=== PATIENT | female | born 1960 | race Caucasian/White ===

== ENCOUNTER 2020-05-24 04:56 | Inpatient (IN) | payer SELFPAY ==
[~2020-05-24] VITALS: Ht 152.4 cm; Wt 64.1 kg
[2020-05-24] MEDS ORDERED: MORPHINE SULFATE 4 MG/ML CPJ (NOT FOR IM USE) IV STA (07:48)
[2020-05-24 08:13] LABS: BASOPHILS % 0.5 % (0.0-2.0); EOSINOPHILS % 2.9 % (0.0-5.0); HEMATOCRIT. 27.5 % (36.0-48.0); LYMPHOCYTES % 27.4 % (20.0-50.0); MEAN CORPUSCULAR VOLUME 86.1 fL (81.0-99.0); MEAN PLATELET VOLUME 6.9 fl (7.4-10.4); MONOCYTES % 4.6 % (2.0-8.0); NEUTROPHILS % 64.6 % (40.0-76.0); PLATELET 226 x1000/uL (130-400); RED BLOOD CELL COUNT 3.19 mill/uL (4.2-5.4); RED CELL DISTRIBUTION WIDTH 13.9 % (11.6-14.6)
[2020-05-24 08:47] LABS: MEAN CORPUSCULAR HEMOGLOBIN 31.3 pg (28.0-32.0)
[2020-05-24 09:47] LABS: CHLORIDE 79 mEq/L (98-107)
[2020-05-24] MEDS ORDERED: MORPHINE SULFATE 4 MG/ML CPJ (NOT FOR IM USE) IV SCH (09:47)
[2020-05-24] MEDS ORDERED: SODIUM CHLORIDE 0.9% 1,000 ML IV ONE (10:00)
[2020-05-24] MEDS ORDERED: POTASSIUM CHLORIDE 20MEQ TABLET SR PO ONE (10:00)
[2020-05-24] MEDS ORDERED: ONDANSETRON HCL 4MG/2ML INJ IV ONE (10:45)
[2020-05-24] MEDS ORDERED: ONDANSETRON HCL 4MG/2ML INJ IV PRN (11:45)
[2020-05-24] MEDS ORDERED: ATROPINE SULFATE 1MG/10ML SYR IV ONE (12:00)
[2020-05-24] MEDS ORDERED: POTASSIUM CHLORIDE 20MEQ TABLET SR PO NR (13:00)
[2020-05-24] MEDS: ENOXAPARIN 40MG/0.4ML SYR SUBCUT SCH (14:06)
[2020-05-24] MEDS: AMLODIPINE 10MG TABLET PO SCH (14:37)
[2020-05-24] MEDS: SODIUM CHLORIDE 0.9% 1,000 ML IV SCH ×2 (14:40→23:59)
[2020-05-24] MEDS: LOSARTAN POTASSIUM 100 MG TABLET PO SCH (16:27)
[2020-05-24] MEDS: FENOFIBRATE NANOCRYSTALLIZED 145MG TABLET PO SCH (16:27)
[2020-05-24 20:00] VITALS: BP_SYST 134; BP_SYST 155; BP_DIAS 65; BP_DIAS 77
[2020-05-24] MEDS: ATORVASTATIN CALCIUM 40MG TABLET PO SCH (22:08)
[2020-05-24] MEDS: POTASSIUM CHLORIDE 20MEQ TABLET SR PO SCH (23:56)
[2020-05-24] MEDS: ACETAMINOPHEN 325MG TABLET PO PRN (23:59)
[2020-05-25] VITALS: BP 126/50
[2020-05-25 04:00] VITALS: BP 143/66
[2020-05-25 07:31] LABS: CHLORIDE 84 mEq/L (98-107)
[2020-05-25] MEDS: ACETAMINOPHEN 325MG TABLET PO PRN (07:32)
[2020-05-25 08:00] VITALS: BP 110/59
[2020-05-25] MEDS: ASPIRIN 81MG TABLET PO SCH (09:34)
[2020-05-25] MEDS: POTASSIUM CHLORIDE 20MEQ TABLET SR PO SCH (09:34)
[2020-05-25] MEDS: AMLODIPINE 10MG TABLET PO SCH (09:34)
[2020-05-25] MEDS: LOSARTAN POTASSIUM 100 MG TABLET PO SCH (09:34)
[2020-05-25] MEDS: FENOFIBRATE NANOCRYSTALLIZED 145MG TABLET PO SCH (09:34)
[2020-05-25 12:00] VITALS: BP 124/47
[2020-05-25] MEDS ORDERED: INFLUENZA VACCINE 05/PF 0.5 ML VIAL IM ONE (12:00)
[2020-05-25 12:15] LABS: BASOPHILS % 0.7 % (0.0-2.0); EOSINOPHILS % 2.5 % (0.0-5.0); HEMATOCRIT. 27.3 % (36.0-48.0); HEMOGLOBIN. 10.2 g/dL (12.0-16.0); LYMPHOCYTES % 30.8 % (20.0-50.0); MEAN CORPUSCULAR HEMOGLOBIN 32.7 pg (28.0-32.0); MEAN CORPUSCULAR VOLUME 87.8 fL (81.0-99.0); MONOCYTES % 3.6 % (2.0-8.0); NEUTROPHILS % 62.4 % (40.0-76.0); PLATELET 229 x1000/uL (130-400); RED BLOOD CELL COUNT 3.11 mill/uL (4.2-5.4); RED CELL DISTRIBUTION WIDTH 13.7 % (11.6-14.6)
[2020-05-25] MEDS: ENOXAPARIN 40MG/0.4ML SYR SUBCUT SCH (13:21)
[2020-05-25] MEDS: SODIUM CHLORIDE 0.9% 1,000 ML IV SCH ×2 (13:21→21:06)
[2020-05-25] MEDS ORDERED: MORPHINE SULFATE 2 MG/ML CPJ (NOT FOR IM USE) IV PRN (13:30)
[2020-05-25] MEDS ORDERED: TRAMADOL 50MG TABLET PO PRN (14:45)
[2020-05-25] MEDS ORDERED: METOCLOPRAMIDE HCL 10MG/2ML VIAL IV PRN (15:30)
[2020-05-25 16:00] VITALS: BP 125/63
[2020-05-25 20:00] VITALS: BP 127/51
[2020-05-25] MEDS: ATORVASTATIN CALCIUM 40MG TABLET PO SCH (21:05)
[2020-05-26] VITALS: BP 98/42
[2020-05-26] MEDS: SODIUM CHLORIDE 0.9% 1,000 ML IV SCH ×2 (02:16→08:35)
[2020-05-26 04:00] VITALS: BP 102/44
[2020-05-26 06:42] LABS: CHLORIDE 87 mEq/L (98-107)
[2020-05-26 06:51] LABS: CLARITY URINE CLEAR (CLEAR); COLOR URINE YELLOW (YELLOW); KETONES URINE NEGATIVE (NEGATIVE); LEUKOCYTE ESTERASE URINE NEGATIVE (NEGATIVE); NITRITE URINE NEGATIVE (NEGATIVE); OCCULT BLOOD URINE NEGATIVE (NEGATIVE); PROTEIN URINE TRACE (NEGATIVE); SPECIFIC GRAVITY URINE 1.011 (1.005-1.030); UROBILINOGEN URINE 0.2 E.U./dL (0.2-1.0)
[2020-05-26 08:00] VITALS: BP 138/61
[2020-05-26] MEDS: ASPIRIN 81MG TABLET PO SCH (08:24)
[2020-05-26] MEDS: FENOFIBRATE NANOCRYSTALLIZED 145MG TABLET PO SCH (08:24)
[2020-05-26] MEDS: AMLODIPINE 10MG TABLET PO SCH (08:25)
[2020-05-26 08:51] LABS: BASOPHILS % 0.7 % (0.0-2.0); EOSINOPHILS % 2.1 % (0.0-5.0); HEMATOCRIT. 24.7 % (36.0-48.0); HEMOGLOBIN. 8.9 g/dL (12.0-16.0); LYMPHOCYTES % 30.6 % (20.0-50.0); MEAN CORPUSCULAR VOLUME 88.7 fL (81.0-99.0); MEAN PLATELET VOLUME 6.9 fl (7.4-10.4); MONOCYTES % 5.2 % (2.0-8.0); NEUTROPHILS % 61.4 % (40.0-76.0); PLATELET 187 x1000/uL (130-400); RED BLOOD CELL COUNT 2.78 mill/uL (4.2-5.4)
[2020-05-26] MEDS: ENOXAPARIN 40MG/0.4ML SYR SUBCUT SCH (11:18)
[2020-05-26 12:00] VITALS: BP 117/63
[2020-05-26 16:00] VITALS: BP 129/65
[2020-05-26 20:00] VITALS: BP 127/60
[2020-05-26] MEDS: ATORVASTATIN CALCIUM 40MG TABLET PO SCH (20:36)
[2020-05-27] VITALS: BP 122/59
[2020-05-27 04:00] VITALS: BP 129/56
[2020-05-27 07:40] LABS: BASOPHILS % 0.9 % (0.0-2.0); EOSINOPHILS % 2.7 % (0.0-5.0); HEMATOCRIT. 25.4 % (36.0-48.0); HEMOGLOBIN. 9.3 g/dL (12.0-16.0); LYMPHOCYTES % 34.2 % (20.0-50.0); MEAN CORPUSCULAR HEMOGLOBIN 32.7 pg (28.0-32.0); MEAN CORPUSCULAR VOLUME 89.6 fL (81.0-99.0); MONOCYTES % 4.8 % (2.0-8.0); NEUTROPHILS % 57.4 % (40.0-76.0); PLATELET 215 x1000/uL (130-400); RED BLOOD CELL COUNT 2.84 mill/uL (4.2-5.4); RED CELL DISTRIBUTION WIDTH 14.1 % (11.6-14.6)
[2020-05-27 07:55] LABS: CHLORIDE 89 mEq/L (98-107)
[2020-05-27 08:00] VITALS: BP 122/51
[2020-05-27] MEDS: ASPIRIN 81MG TABLET PO SCH (08:50)
[2020-05-27] MEDS: FENOFIBRATE NANOCRYSTALLIZED 145MG TABLET PO SCH (08:50)
[2020-05-27] MEDS: AMLODIPINE 10MG TABLET PO SCH (08:51)
[2020-05-27] MEDS: ENOXAPARIN 40MG/0.4ML SYR SUBCUT SCH (11:40)
[2020-05-27 12:00] VITALS: BP 130/57
[2020-05-27] MEDS ORDERED: LACTULOSE 20G/30ML UDC PO NR (14:45)
[2020-05-27] MEDS ORDERED: BENZONATATE 100MG CAPSULE PO PRN (14:45)
[2020-05-27 16:00] VITALS: BP 108/57
[2020-05-27] MEDS: DOCUSATE SODIUM 100MG CAPSULE PO SCH (16:23)
[2020-05-27 20:00] VITALS: BP 92/45
[2020-05-27] MEDS: ATORVASTATIN CALCIUM 40MG TABLET PO SCH (20:12)
[2020-05-28] VITALS: BP 100/49
[2020-05-28 04:00] VITALS: BP 121/47
[2020-05-28 05:53] LABS: CHLORIDE 86 mEq/L (98-107)
[2020-05-28 08:00] VITALS: BP 135/53
[2020-05-28] MEDS: DOCUSATE SODIUM 100MG CAPSULE PO SCH ×2 (08:33→16:43)
[2020-05-28] MEDS: ASPIRIN 81MG TABLET PO SCH (08:33)
[2020-05-28 08:50] LABS: EOSINOPHILS % 3.3 % (0.0-5.0); HEMATOCRIT. 26.9 % (36.0-48.0); HEMOGLOBIN. 9.8 g/dL (12.0-16.0); LYMPHOCYTES % 39.3 % (20.0-50.0); MEAN CORPUSCULAR HEMOGLOBIN 32.6 pg (28.0-32.0); MEAN CORPUSCULAR VOLUME 89.8 fL (81.0-99.0); MEAN PLATELET VOLUME 6.8 fl (7.4-10.4); MONOCYTES % 6.5 % (2.0-8.0); NEUTROPHILS % 49.9 % (40.0-76.0); PLATELET 243 x1000/uL (130-400)
[2020-05-28] MEDS: FENOFIBRATE NANOCRYSTALLIZED 145MG TABLET PO SCH (11:57)
[2020-05-28 12:00] VITALS: BP 126/46
[2020-05-28] MEDS: ENOXAPARIN 40MG/0.4ML SYR SUBCUT SCH (14:34)
[2020-05-28 15:42] VITALS: BP 154/49
[2020-05-28] MEDS: SODIUM CHLORIDE 0.9% 1,000 ML IV SCH (17:49)
[2020-05-28 20:00] VITALS: BP 121/47
[2020-05-28] MEDS: ATORVASTATIN CALCIUM 40MG TABLET PO SCH (21:52)
[2020-05-29] VITALS: BP 129/49
[2020-05-29 04:00] VITALS: BP 118/53
[2020-05-29] MEDS: SODIUM CHLORIDE 0.9% 1,000 ML IV SCH (06:19)
[2020-05-29 08:00] VITALS: BP 122/55
[2020-05-29 08:05] LABS: CHLORIDE 87 mEq/L (98-107)
[2020-05-29] MEDS: DOCUSATE SODIUM 100MG CAPSULE PO SCH ×2 (08:42→17:00)
[2020-05-29] MEDS: ASPIRIN 81MG TABLET PO SCH (08:42)
[2020-05-29] MEDS: FENOFIBRATE NANOCRYSTALLIZED 145MG TABLET PO SCH (08:43)
[2020-05-29 10:17] LABS: BASOPHILS % 0.1 % (0.0-2.0); EOSINOPHILS % 4.3 % (0.0-5.0); HEMOGLOBIN. 9.3 g/dL (12.0-16.0); LYMPHOCYTES % 50.9 % (20.0-50.0); MEAN CORPUSCULAR VOLUME 89.8 fL (81.0-99.0); MEAN PLATELET VOLUME 6.4 fl (7.4-10.4); MONOCYTES % 5.8 % (2.0-8.0); NEUTROPHILS % 38.9 % (40.0-76.0); PLATELET 247 x1000/uL (130-400); RED BLOOD CELL COUNT 2.89 mill/uL (4.2-5.4); RED CELL DISTRIBUTION WIDTH 13.9 % (11.6-14.6)
[2020-05-29 12:00] VITALS: BP 125/58
[2020-05-29] MEDS: ENOXAPARIN 40MG/0.4ML SYR SUBCUT SCH (12:00)
[2020-05-29] MEDS ORDERED: ASPI-1160 PO (13:19)
[2020-05-29] MEDS ORDERED: FENO145 PO (13:19)
[2020-05-29] MEDS ORDERED: DOCU-150 PO (13:19)
[2020-05-29] MEDS ORDERED: LIP40 PO (13:19)
[2020-05-29] MEDS ORDERED: LACTULOSE 20G/30ML UDC PO SCH (13:30)
[2020-05-29 16:00] VITALS: BP 119/55
== END 2020-05-29 17:00 | disposition home or self-care (01) | DRG 203 ==
LOC: ER 04:56 → 8WST 11:33 → EDBEDREQ 11:39 → ENRESERV 16:59
PROVIDERS: ADMIT Internal Medicine; ATTEND Internal Medicine
DX: R07.89 Other chest pain (principal); D64.9 Anemia, unspecified; E78.00 Pure hypercholesterolemia, unspecified; E78.5 Hyperlipidemia, unspecified; E86.9 Volume depletion, unspecified; E87.1 Hypo-osmolality and hyponatremia; E87.6 Hypokalemia; I11.9 Hypertensive heart disease without heart failure; E87.8 Other disorders of electrolyte and fluid balance, not elsewhere classified; K59.00 Constipation, unspecified; I95.9 Hypotension, unspecified; R00.1 Bradycardia, unspecified
CPT/HCPCS: 36415; 71045; 74018; 80048; 80053; 80061; 81003; 82570; 83735; 83880; 83930; 83935; 84300; 84443; 84484; 85025; 90686; 93005; 93306; 97162; 99285; J0461; J1650; J2270; J2405; J2765; J7030; A4315

== ENCOUNTER 2022-01-15 08:13 | Inpatient (IN) | payer MEDICAID, OTHER ==
[~2022-01-15] VITALS: Ht 152.4 cm; Wt 64.4 kg
[~2022-01-15 08:13] MED LIST: ASPI-1160 PO; DOCU-150 PO; FENO145 PO; LIP40 PO
[2022-01-15] MEDS ORDERED: ONDANSETRON 4MG ODT PO STA (08:52)
[2022-01-15] MEDS ORDERED: MAGNESIUM/ALUMINUM HYDROXIDE/SIMETHICONE 30ML UDC PO STA (08:52)
[2022-01-15] MEDS ORDERED: ACETAMINOPHEN 325MG TABLET PO STA (08:52)
[2022-01-15] MEDS ORDERED: VISCOUS LIDOCAINE 2% 15 ML UDC PO STA (08:52)
[2022-01-15 09:52] LABS: CLARITY URINE CLEAR (CLEAR); COLOR URINE YELLOW (YELLOW); KETONES URINE NEGATIVE (NEGATIVE); LEUKOCYTE ESTERASE URINE NEGATIVE (NEGATIVE); NITRITE URINE NEGATIVE (NEGATIVE); OCCULT BLOOD URINE NEGATIVE (NEGATIVE); PROTEIN URINE 3+ (NEGATIVE); SPECIFIC GRAVITY URINE 1.025 (1.005-1.030)
[2022-01-15 10:52] LABS: HEMATOCRIT. 25.1 % (36.0-48.0); HEMOGLOBIN. 9.3 g/dL (12.0-16.0); MEAN CORPUSCULAR HEMOGLOBIN 32.2 pg (28.0-32.0); MEAN CORPUSCULAR VOLUME 86.9 fL (81.0-99.0); MEAN PLATELET VOLUME 6.6 fl (7.4-10.4); PLATELET 224 x1000/uL (130-400); RED BLOOD CELL COUNT 2.89 mill/uL (4.2-5.4)
[2022-01-15 11:00] LABS: CHLORIDE 87 mEq/L (98-107)
[2022-01-15] MEDS ORDERED: SODIUM CHLORIDE 0.9% 500 ML IV ONE (11:15)
[2022-01-15 14:53] LABS: PLATELET ESTIMATE NORMAL
[2022-01-15] MEDS: SODIUM CHLORIDE 0.9% 1,000 ML IV SCH (15:45)
[2022-01-15] MEDS: AMLODIPINE 10MG TABLET PO SCH (18:15)
[2022-01-15 18:17] VITALS: BP 161/50
[2022-01-15 20:00] VITALS: BP 136/55
[2022-01-15] MEDS: ACETAMINOPHEN 325MG TABLET PO PRN (22:10)
[2022-01-15] MEDS ORDERED: HYDROCODONE/ACETAMINOPHEN 10/325MG TABLET PO PRN (23:15)
[2022-01-16] VITALS: BP 158/53
[2022-01-16 04:00] VITALS: BP 137/50
[2022-01-16 06:52] LABS: CHLORIDE 88 mEq/L (98-107)
[2022-01-16 07:18] LABS: BASOPHILS % 1.2 % (0.0-2.0); EOSINOPHILS % 3.5 % (0.0-5.0); HEMATOCRIT. 24.9 % (36.0-48.0); HEMOGLOBIN. 9.1 g/dL (12.0-16.0); LYMPHOCYTES % 39.7 % (20.0-50.0); MEAN CORPUSCULAR VOLUME 87.8 fL (81.0-99.0); MEAN PLATELET VOLUME 6.8 fl (7.4-10.4); NEUTROPHILS % 51.6 % (40.0-76.0); PLATELET 206 x1000/uL (130-400); RED BLOOD CELL COUNT 2.84 mill/uL (4.2-5.4); RED CELL DISTRIBUTION WIDTH 14.1 % (11.6-14.6)
[2022-01-16 08:00] VITALS: BP 151/62
[2022-01-16] MEDS: AMLODIPINE 10MG TABLET PO SCH (09:07)
[2022-01-16] MEDS: SODIUM CHLORIDE 0.9% 1,000 ML IV SCH ×2 (09:08→17:25)
[2022-01-16 12:00] VITALS: BP 144/50
[2022-01-16] MEDS ORDERED: LACTULOSE 20G/30ML UDC PO SCH (12:30)
[2022-01-16] MEDS ORDERED: NALOXONE HCL 0.4MG/ML VIAL IV PRN (12:30)
[2022-01-16] MEDS: DOCUSATE SODIUM 250MG CAPSULE PO SCH (14:35)
[2022-01-16 16:00] VITALS: BP 140/51
[2022-01-16 20:00] VITALS: BP 140/56
[2022-01-16] MEDS: ONDANSETRON HCL 4MG/2ML INJ IV PRN (21:53)
[2022-01-16 23:43] LABS: SODIUM URINE RANDOM 100 mEq/L
[2022-01-17] VITALS: BP 119/48
[2022-01-17 04:00] VITALS: BP 122/51
[2022-01-17] MEDS: SODIUM CHLORIDE 0.9% 1,000 ML IV SCH ×3 (04:40→21:10)
[2022-01-17 07:54] LABS: BASOPHILS % 0.8 % (0.0-2.0); EOSINOPHILS % 3.3 % (0.0-5.0); HEMATOCRIT. 24.8 % (36.0-48.0); HEMOGLOBIN. 8.9 g/dL (12.0-16.0); LYMPHOCYTES % 37.1 % (20.0-50.0); MEAN CORPUSCULAR HEMOGLOBIN 31.9 pg (28.0-32.0); MEAN PLATELET VOLUME 6.6 fl (7.4-10.4); NEUTROPHILS % 54.8 % (40.0-76.0); PLATELET 211 x1000/uL (130-400); RED BLOOD CELL COUNT 2.79 mill/uL (4.2-5.4); RED CELL DISTRIBUTION WIDTH 14.1 % (11.6-14.6)
[2022-01-17 08:00] VITALS: BP 134/59
[2022-01-17 08:02] LABS: CHLORIDE 89 mEq/L (98-107)
[2022-01-17 08:14] LABS: PHOSPHORUS 2.7 mg/dL (2.5-4.9)
[2022-01-17] MEDS: AMLODIPINE 10MG TABLET PO SCH (08:42)
[2022-01-17] MEDS: DOCUSATE SODIUM 250MG CAPSULE PO SCH (09:46)
[2022-01-17 12:00] VITALS: BP 144/60
[2022-01-17] MEDS ORDERED: LACTULOSE 20G/30ML UDC PO NR (13:15)
[2022-01-17] MEDS: ONDANSETRON HCL 4MG/2ML INJ IV PRN (14:53)
[2022-01-17] MEDS: ACETAMINOPHEN 325MG TABLET PO PRN ×2 (14:53→23:16)
[2022-01-17 16:00] VITALS: BP 124/47
[2022-01-17 20:00] VITALS: BP 152/63
[2022-01-17] MEDS ORDERED: BISACODYL 10MG SUPP PR NR (21:00)
[2022-01-17] MEDS ORDERED: COSYNTROPIN 0.25MG/ML VIAL IV NR (21:45)
[2022-01-17] MEDS ORDERED: SORBITOL 70% SOLN 30ML PO NR (23:00)
[2022-01-17] MEDS: DEXAMETHASONE 4MG TABLET PO SCH (23:08)
[2022-01-18 04:06] VITALS: BP 148/50
[2022-01-18 08:00] VITALS: BP 127/50
[2022-01-18] MEDS: SODIUM CHLORIDE 0.9% 1,000 ML IV SCH (08:34)
[2022-01-18] MEDS: AMLODIPINE 10MG TABLET PO SCH (08:38)
[2022-01-18] MEDS: DOCUSATE SODIUM 250MG CAPSULE PO SCH (08:38)
[2022-01-18] MEDS: DEXAMETHASONE 4MG TABLET PO SCH ×2 (08:38→20:24)
[2022-01-18 12:00] VITALS: BP 155/68
[2022-01-18 15:52] VITALS: BP 125/46
[2022-01-18 16:33] LABS: BASOPHILS % 0.2 % (0.0-2.0); EOSINOPHILS % 0.1 % (0.0-5.0); HEMATOCRIT. 25.6 % (36.0-48.0); HEMOGLOBIN. 9.1 g/dL (12.0-16.0); LYMPHOCYTES % 9.5 % (20.0-50.0); MEAN CORPUSCULAR HEMOGLOBIN 31.7 pg (28.0-32.0); MONOCYTES % 0.9 % (2.0-8.0); NEUTROPHILS % 89.3 % (40.0-76.0); PLATELET 246 x1000/uL (130-400); RED BLOOD CELL COUNT 2.88 mill/uL (4.2-5.4); RED CELL DISTRIBUTION WIDTH 14.2 % (11.6-14.6)
[2022-01-18 16:50] LABS: CHLORIDE 93 mEq/L (98-107)
[2022-01-18 16:59] LABS: PHOSPHORUS 2.1 mg/dL (2.5-4.9); T4 FREE 0.24 ng/dL (0.76-1.46)
[2022-01-18 19:52] VITALS: BP 122/47
[2022-01-18] MEDS: ACETAMINOPHEN 325MG TABLET PO PRN (23:33)
[2022-01-18 23:50] VITALS: BP 155/64
[2022-01-19 04:00] VITALS: BP 132/48
[2022-01-19 06:18] LABS: BASOPHILS % 0.1 % (0.0-2.0); EOSINOPHILS % 0.1 % (0.0-5.0); HEMATOCRIT. 25.6 % (36.0-48.0); HEMOGLOBIN. 9.2 g/dL (12.0-16.0); LYMPHOCYTES % 9.8 % (20.0-50.0); MEAN CORPUSCULAR HEMOGLOBIN 31.8 pg (28.0-32.0); MEAN CORPUSCULAR VOLUME 88.7 fL (81.0-99.0); MEAN PLATELET VOLUME 7.2 fl (7.4-10.4); MONOCYTES % 1.9 % (2.0-8.0); NEUTROPHILS % 88.1 % (40.0-76.0); PLATELET 265 x1000/uL (130-400); RED BLOOD CELL COUNT 2.89 mill/uL (4.2-5.4); RED CELL DISTRIBUTION WIDTH 14.3 % (11.6-14.6)
[2022-01-19 06:21] LABS: CHLORIDE 97 mEq/L (98-107)
[2022-01-19 06:30] LABS: PHOSPHORUS 1.6 mg/dL (2.5-4.9)
[2022-01-19 08:00] VITALS: BP 139/54
[2022-01-19] MEDS: DEXAMETHASONE 4MG TABLET PO SCH (08:31)
[2022-01-19] MEDS: AMLODIPINE 10MG TABLET PO SCH (08:32)
[2022-01-19] MEDS: DOCUSATE SODIUM 250MG CAPSULE PO SCH (08:32)
[2022-01-19 12:00] VITALS: BP 125/51
[2022-01-19] MEDS ORDERED: PRED5TAB MT (12:46)
[2022-01-19] MEDS ORDERED: SODIUM PHOS,M-BASIC-D-BASIC 20 MM in DEXT 5% WATER 243.3333 ML IV NR (14:00)
[2022-01-19 16:00] VITALS: BP 138/52
[2022-01-19 19:47] VITALS: BP 157/65
[2022-01-19 20:00] VITALS: BP 157/65
== END 2022-01-19 21:00 | disposition home or self-care (01) | DRG 424 ==
LOC: ER 08:13 → EDBEDREQ 12:23 → EDBEDREQTM 12:23 → CANRESERV 17:41 → ENRESERV 17:41 → 6WST 17:50
PROVIDERS: ADMIT Internal Medicine; ATTEND Internal Medicine
DX: E27.40 Unspecified adrenocortical insufficiency (principal); E87.1 Hypo-osmolality and hyponatremia; M25.511 Pain in right shoulder; I10 Essential (primary) hypertension; D64.9 Anemia, unspecified; E78.00 Pure hypercholesterolemia, unspecified; D72.825 Bandemia; R79.89 Other specified abnormal findings of blood chemistry; Z79.82 Long term (current) use of aspirin; Z79.899 Other long term (current) drug therapy; Z90.49 Acquired absence of other specified parts of digestive tract; Z82.49 Family history of ischemic heart disease and other diseases of the circulatory system; Z83.3 Family history of diabetes mellitus; Z80.42 Family history of malignant neoplasm of prostate
CPT/HCPCS: 36415; 71045; 73030; 76705; 80048; 80053; 81003; 82024; 82088; 82533; 83735; 83935; 84100; 84145; 84300; 84439; 84443; 85025; 93005; 99285; J0834; J2405; J3490; J7030; J7060; J8540; Q0162

== ENCOUNTER 2022-01-25 16:26 | Inpatient (IN) | payer OTHER ==
[~2022-01-25] VITALS: Ht 152.4 cm; Wt 65.3 kg
[~2022-01-25 16:26] MED LIST changes: +PRED5TAB MT
[2022-01-25 18:59] LABS: BASOPHILS % 0.8 % (0.0-2.0); EOSINOPHILS % 1.1 % (0.0-5.0); HEMATOCRIT. 31.2 % (36.0-48.0); HEMOGLOBIN. 11.1 g/dL (12.0-16.0); LYMPHOCYTES % 30.1 % (20.0-50.0); MEAN CORPUSCULAR HEMOGLOBIN 31.9 pg (28.0-32.0); MEAN CORPUSCULAR VOLUME 89.8 fL (81.0-99.0); MEAN PLATELET VOLUME 6.2 fl (7.4-10.4); MONOCYTES % 5.8 % (2.0-8.0); NEUTROPHILS % 62.2 % (40.0-76.0); PLATELET 330 x1000/uL (130-400); RED BLOOD CELL COUNT 3.47 mill/uL (4.2-5.4); RED CELL DISTRIBUTION WIDTH 14.6 % (11.6-14.6)
[2022-01-25 19:21] LABS: CHLORIDE 90 mEq/L (98-107)
[2022-01-25 19:36] LABS: INR 1.1; PROTHROMBIN TIME 11.9 sec (9.6-11.0)
[2022-01-25 20:42] LABS: CLARITY URINE CLEAR (CLEAR); COLOR URINE YELLOW (YELLOW); KETONES URINE NEGATIVE (NEGATIVE); LEUKOCYTE ESTERASE URINE NEGATIVE (NEGATIVE); NITRITE URINE NEGATIVE (NEGATIVE); OCCULT BLOOD URINE TRACE (NEGATIVE); PH URINE 7.5 (4.5-8.0); PROTEIN URINE 2+ (NEGATIVE); SPECIFIC GRAVITY URINE 1.007 (1.005-1.030); UROBILINOGEN URINE 0.2 E.U./dL (0.2-1.0)
[2022-01-25 20:43] LABS: BG BASE EXCESS -0.2 mmol/L (-2.0-2.0); BG CARBOXYHEMOGLOBIN 0.3 % (0.5-1.5); BG DEOXYHEMOGLOBIN 2.4 % (0.0-5.0); BG HCO3 ACT 22.4 mmol/L (22.0-26.0); BG METHEMOGLOBIN 0.3 % (0.0-1.5); BG OXYGEN SATURATION 97.6 % (92.0-98.5); BG PCO2 30.2 mmHg (35.0-45.0); BG PH 7.488 (7.350-7.450); BG PO2 104.7 mmHg (75.0-100.0); BG SAMPLE SITE LEFT BRACHIAL; BG TOTAL HEMOGLOBIN 12.1 g/dL (12.0-18.0); BG VENT MODE ROOM AIR
[2022-01-25] MEDS ORDERED: SODIUM CHLORIDE 0.9% 1,000 ML IV ONE (21:00)
[2022-01-25 21:33] LABS: ETHANOL BLOOD < 10 mg/dL
[2022-01-25] MEDS ORDERED: ASPIRIN 325MG EC TABLET PO NR (22:00)
[2022-01-25] MEDS ORDERED: ENOXAPARIN 80MG/0.8ML SYR SUBCUT SCH (23:00)
[2022-01-25] MEDS ORDERED: CLONIDINE 0.1MG TABLET PO PRN (23:30)
[2022-01-26] VITALS (7 sets, daily range): BP systolic 116–144; BP diastolic 56–93
[2022-01-26] MEDS ORDERED: ACETAMINOPHEN 325MG TABLET PO PRN (01:00)
[2022-01-26 07:51] LABS: BASOPHILS % 0.9 % (0.0-2.0); EOSINOPHILS % 2.4 % (0.0-5.0); HEMATOCRIT. 30.9 % (36.0-48.0); LYMPHOCYTES % 49.4 % (20.0-50.0); MEAN CORPUSCULAR VOLUME 89.7 fL (81.0-99.0); MEAN PLATELET VOLUME 6.3 fl (7.4-10.4); MONOCYTES % 5.7 % (2.0-8.0); NEUTROPHILS % 41.6 % (40.0-76.0); PLATELET 319 x1000/uL (130-400); RED BLOOD CELL COUNT 3.45 mill/uL (4.2-5.4); RED CELL DISTRIBUTION WIDTH 14.6 % (11.6-14.6)
[2022-01-26] MEDS: METOPROLOL TARTRATE 50MG TABLET PO SCH ×2 (09:16→20:11)
[2022-01-26] MEDS: AMLODIPINE 2.5MG TABLET PO SCH ×2 (09:16→20:12)
[2022-01-26] MEDS: ASPIRIN 81MG TABLET PO SCH (09:16)
[2022-01-26] MEDS: PREDNISONE 5MG TABLET PO SCH (09:17)
[2022-01-26] MEDS: APIXABAN 5 MG TABLET PO SCH ×2 (09:17→17:10)
[2022-01-26] MEDS: DOCUSATE SODIUM 100MG CAPSULE PO SCH ×2 (09:19→17:10)
[2022-01-26] MEDS ORDERED: PANTOPRAZOLE 40MG DR TABLET PO SCH (11:45)
[2022-01-26] MEDS ORDERED: ATORVASTATIN CALCIUM 40MG TABLET PO SCH (21:00)
[2022-01-27] VITALS: BP 100/61
[2022-01-27 04:00] VITALS: BP 109/67
[2022-01-27] MEDS ORDERED: OMEPRAZOLE 20MG CAPSULE EXTENDED RELEASE PO SCH (07:40)
[2022-01-27 08:00] VITALS: BP 123/60
[2022-01-27] MEDS: ASPIRIN 81MG TABLET PO SCH (09:32)
[2022-01-27] MEDS: PREDNISONE 5MG TABLET PO SCH (09:33)
[2022-01-27] MEDS: APIXABAN 5 MG TABLET PO SCH ×2 (09:33→16:14)
[2022-01-27] MEDS: AMLODIPINE 2.5MG TABLET PO SCH (09:33)
[2022-01-27] MEDS: METOPROLOL TARTRATE 50MG TABLET PO SCH (09:33)
[2022-01-27] MEDS: DOCUSATE SODIUM 100MG CAPSULE PO SCH ×2 (09:34→16:14)
[2022-01-27 12:00] VITALS: BP 121/63
[2022-01-27] MEDS ORDERED: LACTULOSE 20G/30ML UDC PO SCH (14:00)
[2022-01-27 16:00] VITALS: BP 125/62
[2022-01-27 17:42] VITALS: BP 125/72
== END 2022-01-27 18:00 | disposition home or self-care (01) | DRG 48 ==
LOC: ER 16:26 → 7WST 22:12 → ENRESERV 22:44
PROVIDERS: ADMIT Internal Medicine; ATTEND Internal Medicine
DX: G90.8 Other disorders of autonomic nervous system (principal); E87.8 Other disorders of electrolyte and fluid balance, not elsewhere classified; E27.40 Unspecified adrenocortical insufficiency; E87.1 Hypo-osmolality and hyponatremia; R10.9 Unspecified abdominal pain; I10 Essential (primary) hypertension; E78.5 Hyperlipidemia, unspecified; R77.8 Other specified abnormalities of plasma proteins; Z82.49 Family history of ischemic heart disease and other diseases of the circulatory system; Z83.3 Family history of diabetes mellitus; Z90.49 Acquired absence of other specified parts of digestive tract; Z79.899 Other long term (current) drug therapy
CPT/HCPCS: 36415; 36600; 71045; 74176; 80048; 80053; 80320; 81003; 82140; 82375; 82805; 82962; 83605; 84443; 84484; 85025; 85379; 93005; 93306; 99285; J1650; J7030; J7512; G0480

== ENCOUNTER 2022-06-12 09:30 | Inpatient (IN) | payer MEDICAID, OTHER ==
[~2022-06-12] VITALS: Ht 152.4 cm; Wt 56.8 kg
[2022-06-12] MEDS ORDERED: SODIUM CHLORIDE 0.9% 1000ML BAG (SEPSIS BOLUS) IV ONE (10:00)
[2022-06-12 11:01] LABS: BASOPHILS % 0.8 % (0.0-2.0); EOSINOPHILS % 0.1 % (0.0-5.0); HEMATOCRIT. 34.5 % (36.0-48.0); LYMPHOCYTES % 23.5 % (20.0-50.0); MEAN CORPUSCULAR HEMOGLOBIN 32.1 pg (28.0-32.0); MEAN CORPUSCULAR VOLUME 92.6 fL (81.0-99.0); MEAN PLATELET VOLUME 8.5 fl (7.4-10.4); NEUTROPHILS % 71.6 % (40.0-76.0); PLATELET 202 x1000/uL (130-400); RED BLOOD CELL COUNT 3.73 mill/uL (4.2-5.4); RED CELL DISTRIBUTION WIDTH 15.5 % (11.6-14.6)
[2022-06-12 11:03] LABS: INR 1.3; PROTHROMBIN TIME 13.6 sec (9.6-11.0)
[2022-06-12 11:04] LABS: CHLORIDE 97 mEq/L (98-107)
[2022-06-12] MEDS ORDERED: PIPERACILLIN/TAZOBACTAM 3.375GM/50ML PREMIX IV ONE (11:45)
[2022-06-12] MEDS ORDERED: VANCOMYCIN 1.25GM PMX (XELLIA) 250 ML IV SCH (11:45)
[2022-06-12] MEDS ORDERED: PIPERACILLIN/TAZ 3.375G PREMIX 50 ML IV NR (12:00)
[2022-06-12] MEDS ORDERED: HYDROCORTISONE SOD SUCCINATE 100 MG/2 ML VIAL IV ONE ×2 (12:15→13:45)
[2022-06-12] MEDS ORDERED: DEXT 5%/LACTATED RINGERS 1,000 ML IV ONE (12:30)
[2022-06-12] MEDS ORDERED: DEXAMETHASONE 10 MG/ML VIAL IV ONE (12:30)
[2022-06-12] MEDS ORDERED: NOREPINEPHRINE 8MG/250ML PMX 250 ML IV SCH (13:45)
[2022-06-12] MEDS ORDERED: SODIUM CHLORIDE 0.9% 1,000 ML IV ONE (13:45)
[2022-06-12] MEDS ORDERED: ONDANSETRON HCL 4MG/2ML INJ IV PRN (15:45)
[2022-06-12] MEDS ORDERED: ACETAMINOPHEN 325MG TABLET PO PRN (15:45)
[2022-06-12] MEDS: DEXT 5%/0.45% NACL 1000ML 1,000 ML IV SCH (16:44)
[2022-06-12] MEDS ORDERED: PIPERACILLIN/TAZOBACTAM 3.375 G in DEXTROSE 5% WATER 50 ML IV SCH (23:00)
[2022-06-13] MEDS: DEXT 5%/0.45% NACL 1000ML 1,000 ML IV SCH ×3 (02:36→21:45)
[2022-06-13 09:00] VITALS: BP_SYST 144; BP_DIAS 61; BP_DIAS 81
[2022-06-13 12:00] VITALS: BP 103/58
[2022-06-13 12:59] LABS: BASOPHILS % 0.2 % (0.0-2.0); EOSINOPHILS % 0.1 % (0.0-5.0); HEMATOCRIT. 26.5 % (36.0-48.0); HEMOGLOBIN. 9.3 g/dL (12.0-16.0); MEAN CORPUSCULAR HEMOGLOBIN 31.9 pg (28.0-32.0); MEAN CORPUSCULAR VOLUME 91.2 fL (81.0-99.0); MEAN PLATELET VOLUME 7.8 fl (7.4-10.4); MONOCYTES % 3.2 % (2.0-8.0); NEUTROPHILS % 88.5 % (40.0-76.0); PLATELET 163 x1000/uL (130-400); RED BLOOD CELL COUNT 2.91 mill/uL (4.2-5.4)
[2022-06-13 16:00] VITALS: BP 140/61
[2022-06-13] MEDS: PIPERACILLIN/TAZOBACTAM 3.375 G in DEXTROSE 5% WATER 50 ML IV SCH ×2 (16:18→21:45)
[2022-06-13 20:00] VITALS: BP 127/51
[2022-06-14] VITALS: BP 129/57
[2022-06-14 04:03] VITALS: BP 156/49
[2022-06-14] MEDS: LEVOTHYROXINE SODIUM 50MCG TABLET PO SCH (05:49)
[2022-06-14 07:55] VITALS: BP 135/44
[2022-06-14] MEDS: DEXT 5%/0.45% NACL 1000ML 1,000 ML IV SCH ×2 (08:16→12:16)
[2022-06-14] MEDS: PIPERACILLIN/TAZOBACTAM 3.375 G in DEXTROSE 5% WATER 50 ML IV SCH ×2 (08:17→21:08)
[2022-06-14 12:00] VITALS: BP 142/61
[2022-06-14 16:00] VITALS: BP 121/44
[2022-06-14 20:00] VITALS: BP 112/55
[2022-06-15] VITALS: BP 132/51
[2022-06-15] MEDS: DEXT 5%/0.45% NACL 1000ML 1,000 ML IV SCH (03:45)
[2022-06-15 04:00] VITALS: BP 168/63
[2022-06-15] MEDS: LEVOTHYROXINE SODIUM 50MCG TABLET PO SCH (05:45)
[2022-06-15] MEDS ORDERED: LEVO-65 MT (07:40)
[2022-06-15] MEDS ORDERED: LEVO50TA8 PO (07:40)
[2022-06-15 08:00] VITALS: BP 143/45
[2022-06-15] MEDS: PIPERACILLIN/TAZOBACTAM 3.375 G in DEXTROSE 5% WATER 50 ML IV SCH (09:06)
[2022-06-15 10:15] VITALS: BP 143/45
[2022-06-15 12:00] VITALS: BP 150/44
== END 2022-06-15 13:30 | disposition home or self-care (01) | DRG 720 ==
LOC: ER 09:30 → CVICU 13:58 → ENRESERV 14:57 → MICUSO 16:16 → 7EST 06-13 08:53
PROVIDERS: ADMIT Internal Medicine; ATTEND Internal Medicine
DX: A41.9 Sepsis, unspecified organism (principal); N17.0 Acute kidney failure with tubular necrosis; R65.21 Severe sepsis with septic shock; U07.1 COVID-19; E87.1 Hypo-osmolality and hyponatremia; I10 Essential (primary) hypertension; E03.9 Hypothyroidism, unspecified; E16.2 Hypoglycemia, unspecified; E87.8 Other disorders of electrolyte and fluid balance, not elsewhere classified; Z90.49 Acquired absence of other specified parts of digestive tract; Z83.3 Family history of diabetes mellitus; Z82.49 Family history of ischemic heart disease and other diseases of the circulatory system
CPT/HCPCS: 36415; 71045; 74176; 80048; 80053; 82533; 82962; 83605; 83880; 84145; 84443; 84484; 85025; 86850; 86900; 87426; 87804; 93005; 99291; J1100; J1720; J2405; J2543; J3370; J3490; J7030; J7060

== ENCOUNTER 2022-10-11 18:15 | Emergency (ER) | payer MEDICAID, OTHER ==
[~2022-10-11] VITALS: Ht 157.5 cm; Wt 59.0 kg
[~2022-10-11 18:15] MED LIST changes: +LEVO-65 MT; +LEVO50TA8 PO
[2022-10-11 18:51] LABS: BASOPHILS % 0.8 % (0.0-2.0); EOSINOPHILS % 1.4 % (0.0-5.0); HEMATOCRIT. 31.7 % (36.0-48.0); HEMOGLOBIN. 11.3 g/dL (12.0-16.0); LYMPHOCYTES % 17.7 % (20.0-50.0); MEAN CORPUSCULAR HEMOGLOBIN 31.4 pg (28.0-32.0); MEAN CORPUSCULAR VOLUME 88.2 fL (81.0-99.0); MEAN PLATELET VOLUME 6.9 fl (7.4-10.4); MONOCYTES % 2.6 % (2.0-8.0); NEUTROPHILS % 77.5 % (40.0-76.0); PLATELET 270 x1000/uL (130-400); RED BLOOD CELL COUNT 3.59 mill/uL (4.2-5.4); RED CELL DISTRIBUTION WIDTH 13.6 % (11.6-14.6)
[2022-10-11 19:01] LABS: CHLORIDE 101 mEq/L (98-107)
[2022-10-11] MEDS ORDERED: P20 MT (19:51)
[2022-10-11] MEDS ORDERED: POLY15DR31 LEFTEYE (19:51)
[2022-10-11] MEDS ORDERED: VALA100044 MT (19:51)
[2022-10-11 20:10] VITALS: BP 165/89
== END 2022-10-11 20:13 | disposition home or self-care (01) ==
LOC: ER 18:15
DX: R29.810 Facial weakness (principal); I10 Essential (primary) hypertension; Z90.49 Acquired absence of other specified parts of digestive tract; Z98.890 Other specified postprocedural states; Z79.899 Other long term (current) drug therapy
CPT/HCPCS: 36415; 80053; 82962; 84484; 85025; 93005; 99285

== ENCOUNTER 2024-12-26 04:23 | Inpatient (IN) | payer MEDICAID, OTHER ==
[~2024-12-26] VITALS: Ht 144.8 cm; Wt 59.0 kg
[~2024-12-26 04:23] MED LIST changes: -DOCU-150 PO; +DOCU-422 PO; +P20 MT; +POLY15DR31 LEFTEYE; +VALA100044 MT
[2024-12-26 05:15] LABS: BASOPHILS % 1.4 % (0.0-2.0); EOSINOPHILS % 2.4 % (0.0-5.0); HEMATOCRIT. 29.6 % (36.0-48.0); HEMOGLOBIN. 10.4 g/dL (12.0-16.0); LYMPHOCYTES % 45.3 % (20.0-50.0); MEAN CORPUSCULAR HEMOGLOBIN 31.8 pg (28.0-32.0); MEAN CORPUSCULAR HGB CONC 35.2 g/dL (31.0-37.0); MEAN CORPUSCULAR VOLUME 90.4 fL (81.0-99.0); MEAN PLATELET VOLUME 7.1 fl (7.4-10.4); NEUTROPHILS % 46.9 % (40.0-76.0); PLATELET 270 x1000/uL (130-400); RED BLOOD CELL COUNT 3.28 mill/uL (4.2-5.4); RED CELL DISTRIBUTION WIDTH 15.5 % (11.6-14.6); WHITE BLOOD COUNT 4.7 x1000/uL (4.5-11.0)
[2024-12-26 05:26] LABS: POTASSIUM 3.9 mEq/L (3.5-5.1)
[2024-12-26 05:27] LABS: CALCIUM 9.7 mg/dL (8.7-10.4)
[2024-12-26 05:32] LABS: CREATININE 1.3 mg/dL (0.6-1.0)
[2024-12-26] MEDS ORDERED: KETOROLAC 30MG/ML VIAL IV STA (06:32)
[2024-12-26] MEDS ORDERED: MAGNESIUM/ALUMINUM HYDROXIDE/SIMETHICONE 30ML UDC PO STA (06:32)
[2024-12-26] MEDS ORDERED: ONDANSETRON HCL 4MG/2ML INJ IV STA (06:32)
[2024-12-26] MEDS ORDERED: VISCOUS LIDOCAINE 2% 15 ML UDC PO STA (06:32)
[2024-12-26] MEDS ORDERED: FAMOTIDINE 20MG/2ML VIAL IV STA (06:32)
[2024-12-26] MEDS: MAGNESIUM/ALUMINUM HYDROXIDE/SIMETHICONE 30ML UDC PO SCH (09:49)
[2024-12-26] MEDS: DICYCLOMINE 10 MG/5 ML ORAL SYR PO STA (09:49)
[2024-12-26] MEDS: KETOROLAC 30MG/ML VIAL IV SCH (10:00)
[2024-12-26] MEDS: FAMOTIDINE 20MG/2ML VIAL IV SCH (10:00)
[2024-12-26] MEDS: ONDANSETRON HCL 4MG/2ML INJ IV SCH (10:01)
[2024-12-26 10:07] LABS: ALANINE AMINOTRANSFERASE 13 IU/L (10-49); ALBUMIN 4.2 g/dL (3.2-4.8); ASPARTATE AMINOTRANSFERASE 38 IU/L (<34); BILIRUBIN DIRECT 0.1 mg/dL (<=3.0)
[2024-12-26 10:08] LABS: BILIRUBIN TOTAL 0.4 mg/dL (0.1-1.0)
[2024-12-26] MEDS: SODIUM CHLORIDE 0.9% 1,000 ML IV ONE (10:13)
[2024-12-26] MEDS: VISCOUS LIDOCAINE 2% 15 ML UDC PO SCH (10:13)
[2024-12-26] MEDS: ENOXAPARIN 60MG/0.6ML SYR SUBCUT ONE (11:28)
[2024-12-26 14:00] VITALS: BP 105/76; PULSE 90; RESP 18; TEMP 36.3
[2024-12-26] MEDS ORDERED: HYDROCODONE/ACETAMINOPHEN 5/325MG TABLET PO PRN (15:00)
[2024-12-26] MEDS ORDERED: NALOXONE HCL 0.4MG/ML VIAL IV PRN (15:15)
[2024-12-26] MEDS: IOHEXOL-350 100 ML BOTTLE ONE (15:32)
[2024-12-26 16:00] VITALS: BP 110/78; PULSE 106; TEMP 36.4
[2024-12-26] MEDS: BLOOD SUGAR DIAGNOSTIC STRIP TEST SCH (17:00)
[2024-12-26] MEDS: INSULIN LISPRO 100 UNITS/ML SUBCUT SCH (17:30)
[2024-12-26] MEDS: CEFTRIAXONE 1GM/50ML 50 ML IV SCH (19:05)
[2024-12-26 20:00] VITALS: BP 101/61; PULSE 85; RESP 19; TEMP 36.1; O2SAT 98
[2024-12-26] MEDS: ONDANSETRON HCL 4MG/2ML INJ IV PRN (20:59)
[2024-12-26] MEDS: ACETAMINOPHEN 325MG TABLET PO PRN (21:23)
[2024-12-26] MEDS: ATORVASTATIN CALCIUM 40MG TABLET PO SCH (21:23)
[2024-12-26 22:24] LABS: CLARITY URINE CLEAR (CLEAR); COLOR URINE DARK YELLOW (YELLOW); GLUCOSE URINE NEGATIVE (NEGATIVE); KETONES URINE NEGATIVE (NEGATIVE); LEUKOCYTE ESTERASE URINE NEGATIVE (NEGATIVE); NITRITE URINE NEGATIVE (NEGATIVE); OCCULT BLOOD URINE NEGATIVE (NEGATIVE); PROTEIN URINE 2+ (NEGATIVE); SPECIFIC GRAVITY URINE 1.074 (1.005-1.030)
[2024-12-26 22:38] LABS: BACTERIA URINE TRACE; RBC URINE NONE SEEN /hpf (0-2); SQUAMOUS EPITHELIAL CELL URINE RARE /lpf (RARE/1+); WBC URINE 0-2 /hpf (0-2)
[2024-12-27] VITALS: BP 104/60; PULSE 103; RESP 19; TEMP 35.9; O2SAT 98
[2024-12-27 04:00] VITALS: BP 97/76; PULSE 105; RESP 19; TEMP 35.9; O2SAT 98
[2024-12-27] MEDS: LEVOTHYROXINE SODIUM 50MCG TABLET PO SCH (06:22)
[2024-12-27 08:00] VITALS: BP 120/77; PULSE 108; RESP 18; TEMP 35.9; O2SAT 97
[2024-12-27] MEDS: FENOFIBRATE NANOCRYSTALLIZED 145MG TABLET PO SCH (08:56)
[2024-12-27] MEDS: ASPIRIN 81MG TABLET PO SCH (08:56)
[2024-12-27] MEDS: PANTOPRAZOLE SODIUM 40 MG/VIAL IV SCH (08:57)
[2024-12-27] MEDS: FUROSEMIDE 40MG/4ML VIAL IVP SCH (08:59)
[2024-12-27] MEDS: ENOXAPARIN 40MG/0.4ML SYR SUBCUT SCH (09:00)
[2024-12-27 09:51] LABS: CALCIUM 8.5 mg/dL (8.7-10.4); POTASSIUM 5.4 mEq/L (3.5-5.1)
[2024-12-27 09:52] LABS: BASOPHILS % 1.7 % (0.0-2.0); EOSINOPHILS % 2.3 % (0.0-5.0); HEMATOCRIT. 27.7 % (36.0-48.0); HEMOGLOBIN. 9.7 g/dL (12.0-16.0); LYMPHOCYTES % 43.2 % (20.0-50.0); MEAN CORPUSCULAR HEMOGLOBIN 31.8 pg (28.0-32.0); MEAN CORPUSCULAR VOLUME 90.9 fL (81.0-99.0); MEAN PLATELET VOLUME 7.2 fl (7.4-10.4); MONOCYTES % 5.5 % (2.0-8.0); NEUTROPHILS % 47.3 % (40.0-76.0); PLATELET 251 x1000/uL (130-400); RED BLOOD CELL COUNT 3.05 mill/uL (4.2-5.4); RED CELL DISTRIBUTION WIDTH 15.5 % (11.6-14.6); WHITE BLOOD COUNT 4.4 x1000/uL (4.5-11.0)
[2024-12-27 09:56] LABS: CREATININE 1.4 mg/dL (0.6-1.0)
[2024-12-27 12:00] VITALS: BP 118/78; PULSE 98; RESP 19; TEMP 36.1; O2SAT 99
[2024-12-27] MEDS: FAMOTIDINE 20MG/2ML VIAL IV SCH (12:21)
[2024-12-27] MEDS: SODIUM ZIRCONIUM CYCLOSILICATE 10GM/PACKET PO SCH (15:47)
[2024-12-27 16:00] VITALS: BP 109/72; PULSE 112; RESP 17; TEMP 36.4; O2SAT 96
[2024-12-28] VITALS: BP 103/67; PULSE 102; RESP 18; TEMP 36.7; O2SAT 97
[2024-12-28 04:00] VITALS: BP 96/59; PULSE 107; RESP 18; TEMP 36.3; O2SAT 99
[2024-12-28 07:15] LABS: BASOPHILS % 1.9 % (0.0-2.0); EOSINOPHILS % 3.6 % (0.0-5.0); HEMATOCRIT. 27.1 % (36.0-48.0); HEMOGLOBIN. 9.4 g/dL (12.0-16.0); LYMPHOCYTES % 43.5 % (20.0-50.0); MEAN CORPUSCULAR HGB CONC 34.7 g/dL (31.0-37.0); MEAN CORPUSCULAR VOLUME 89.5 fL (81.0-99.0); MEAN PLATELET VOLUME 7.5 fl (7.4-10.4); MONOCYTES % 7.2 % (2.0-8.0); NEUTROPHILS % 43.8 % (40.0-76.0); PLATELET 238 x1000/uL (130-400); RED BLOOD CELL COUNT 3.03 mill/uL (4.2-5.4); WHITE BLOOD COUNT 3.7 x1000/uL (4.5-11.0)
[2024-12-28 07:25] LABS: CALCIUM 8.5 mg/dL (8.7-10.4); POTASSIUM 3.8 mEq/L (3.5-5.1)
[2024-12-28 07:30] LABS: CREATININE 1.6 mg/dL (0.6-1.0)
[2024-12-28 08:00] VITALS: BP 94/61; PULSE 68; RESP 16; RESP 18; TEMP 35.7; O2SAT 96
[2024-12-28 12:00] VITALS: BP 113/75; PULSE 88; RESP 18; TEMP 35.9; O2SAT 96
[2024-12-28 16:00] VITALS: BP 96/58; PULSE 64; RESP 16; TEMP 35.8; O2SAT 98
[2024-12-28 20:00] VITALS: BP 97/67; PULSE 105; RESP 19; TEMP 35.9; O2SAT 96
[2024-12-29] VITALS (7 sets, daily range): BP systolic 89–120; BP diastolic 53–83; PULSE 72–99; RESP 11–20; TEMP 34.8–36.8; O2SAT 95–99
[2024-12-29] MEDS: DEXTROSE 50% WATER 50ML SYRINGE IV PRN (06:36)
[2024-12-29 07:56] LABS: BASOPHILS % 2.7 % (0.0-2.0); EOSINOPHILS % 3.9 % (0.0-5.0); HEMATOCRIT. 28.8 % (36.0-48.0); HEMOGLOBIN. 10.1 g/dL (12.0-16.0); LYMPHOCYTES % 40.9 % (20.0-50.0); MEAN CORPUSCULAR HEMOGLOBIN 31.6 pg (28.0-32.0); MEAN CORPUSCULAR HGB CONC 35.2 g/dL (31.0-37.0); MEAN CORPUSCULAR VOLUME 89.7 fL (81.0-99.0); MONOCYTES % 5.9 % (2.0-8.0); NEUTROPHILS % 46.6 % (40.0-76.0); PLATELET 230 x1000/uL (130-400); RED BLOOD CELL COUNT 3.21 mill/uL (4.2-5.4); RED CELL DISTRIBUTION WIDTH 15.8 % (11.6-14.6); WHITE BLOOD COUNT 3.3 x1000/uL (4.5-11.0)
[2024-12-29 08:02] LABS: POTASSIUM 3.3 mEq/L (3.5-5.1)
[2024-12-29 08:03] LABS: INR 1.5; PROTHROMBIN TIME 15.4 sec (9.6-11.0)
[2024-12-29 08:04] LABS: CALCIUM 8.2 mg/dL (8.7-10.4)
[2024-12-29 08:08] LABS: CREATININE 1.3 mg/dL (0.6-1.0)
[2024-12-29] MEDS ORDERED: IODIXANOL 320MG/ML 100 ML BOTTLE IV ONE (08:45)
[2024-12-29] MEDS ORDERED: HEPARIN 1000 UNITS/ML 10ML ONE (08:45)
[2024-12-29] MEDS ORDERED: LIDOCAINE HCL 1% 20ML VIAL ONE (08:45)
[2024-12-29] MEDS ORDERED: VERAPAMIL HCL 2.5 MG/1 ML 2ML VIAL IV ONE (08:56)
[2024-12-29] MEDS: POTASSIUM CHLORIDE 20MEQ/PACKET PO SCH (09:12)
[2024-12-29] MEDS ORDERED: DIPHENHYDRAMINE 50MG/ML VIAL ONE (09:37)
[2024-12-29] MEDS ORDERED: MIDAZOLAM HCL 2 MG/2 ML VIAL ONE (09:37)
[2024-12-29] MEDS ORDERED: FENTANYL CITRATE/PF 50MCG/ML 2ML VIAL ONE (09:37)
[2024-12-29] MEDS ORDERED: ATROPINE SULFATE 1MG/10ML SYR ONE (10:04)
[2024-12-29] MEDS ORDERED: CLOPIDOGREL 75MG TABLET ONE (10:21)
[2024-12-29] MEDS ORDERED: ACETAMINOPHEN 325MG TABLET PO PRN (10:45)
[2024-12-29] MEDS ORDERED: ATROPINE SULFATE 1MG/10ML SYR IV PRN (10:45)
[2024-12-29] MEDS: METOPROLOL TARTRATE 25MG TABLET PO SCH (11:47)
[2024-12-29 17:52] LABS: *AMPHETAMINES SCREEN URINE NEGATIVE (NEGATIVE); *BARBITURATES SCREEN URINE NEGATIVE (NEGATIVE); *BENZODIAZEPINES SCREEN URINE NEGATIVE (NEGATIVE); *COCAINE SCREEN URINE NEGATIVE (NEGATIVE); CANNABINOID URINE SCREEN NEGATIVE (NEGATIVE); ECSTASY MDMA SCREEN URINE NEGATIVE (NEGATIVE); METHADONE URINE SCREEN NEGATIVE (NEGATIVE); OPIATES URINE SCREEN NEGATIVE (NEGATIVE); PHENCYCLIDINE URINE SCREEN NEGATIVE (NEGATIVE)
[2024-12-29] MEDS: GUAIFENESIN-DM 200MG-20MG/10ML UDC PO PRN (20:49)
[2024-12-29] MEDS: APIXABAN 5 MG TABLET PO SCH (20:49)
[2024-12-30] VITALS: BP 106/75; PULSE 104; RESP 13; TEMP 36.7; O2SAT 95
[2024-12-30 04:00] VITALS: BP 92/76; PULSE 104; RESP 12; TEMP 36.8; O2SAT 95
[2024-12-30 08:00] VITALS: BP 109/81; PULSE 106; RESP 14; TEMP 36.9; O2SAT 93
[2024-12-30] MEDS: POTASSIUM CHLORIDE 20MEQ/PACKET PO SCH (09:02)
[2024-12-30] MEDS: DIGOXIN 500MCG/2ML AMP IV SCH ×3 (09:02→14:52)
[2024-12-30 11:32] LABS: BASOPHILS % 2.1 % (0.0-2.0); EOSINOPHILS % 1.7 % (0.0-5.0); HEMATOCRIT. 29.9 % (36.0-48.0); HEMOGLOBIN. 10.4 g/dL (12.0-16.0); LYMPHOCYTES % 25.7 % (20.0-50.0); MEAN CORPUSCULAR HEMOGLOBIN 31.6 pg (28.0-32.0); MEAN CORPUSCULAR HGB CONC 34.9 g/dL (31.0-37.0); MEAN CORPUSCULAR VOLUME 90.5 fL (81.0-99.0); MONOCYTES % 7.3 % (2.0-8.0); NEUTROPHILS % 63.2 % (40.0-76.0); PLATELET 247 x1000/uL (130-400); RED CELL DISTRIBUTION WIDTH 15.9 % (11.6-14.6); WHITE BLOOD COUNT 4.3 x1000/uL (4.5-11.0)
[2024-12-30 11:46] LABS: POTASSIUM 4.7 mEq/L (3.5-5.1)
[2024-12-30 11:48] LABS: CALCIUM 8.5 mg/dL (8.7-10.4)
[2024-12-30 11:52] LABS: CREATININE 1.5 mg/dL (0.6-1.0)
[2024-12-30 12:00] VITALS: BP 118/91; PULSE 76; RESP 9; TEMP 36.7; O2SAT 96
[2024-12-30 16:00] VITALS: BP 117/83; PULSE 88; RESP 14; TEMP 36.8; O2SAT 98
[2024-12-30] MEDS: DIGOXIN 125MCG TABLET PO SCH (17:31)
[2024-12-30 20:00] VITALS: BP 132/71; PULSE 98; RESP 15; TEMP 36.9; O2SAT 95
[2024-12-30 21:31] LABS: AMMONIA 73 uMol/L (<32)
[2024-12-31] VITALS: BP 83/67; PULSE 88; RESP 14; TEMP 36.7; O2SAT 93
[2024-12-31 04:00] VITALS: BP 135/63; PULSE 51; RESP 12; TEMP 36.4; O2SAT 95
[2024-12-31] MEDS: DEXT 5%/0.45% NACL 1000ML 1,000 ML IV SCH (04:18)
[2024-12-31 06:41] LABS: THYROID STIMULATING HORMONE 2.63 uIU/mL (0.55-4.78)
[2024-12-31 07:25] LABS: DIGOXIN 3.2 ng/mL (0.8-2.0)
[2024-12-31 07:26] LABS: VITAMIN B12 SERUM > 2000 pg/mL (211-911)
[2024-12-31 08:00] VITALS: BP 92/80; PULSE 85; RESP 13; TEMP 36.2; O2SAT 99
[2024-12-31 08:44] LABS: CHLORIDE 90 mEq/L (98-107); POTASSIUM 5.5 mEq/L (3.5-5.1); SODIUM 123 mEq/L (136-145)
[2024-12-31 08:46] LABS: CALCIUM 8.4 mg/dL (8.7-10.4); CARBON DIOXIDE 20 mEq/L (21-32)
[2024-12-31 08:49] LABS: BASOPHILS % 0.5 % (0.0-2.0); EOSINOPHILS % 0.6 % (0.0-5.0); HEMATOCRIT. 29.3 % (36.0-48.0); HEMOGLOBIN. 10.4 g/dL (12.0-16.0); LYMPHOCYTES % 16.1 % (20.0-50.0); MEAN CORPUSCULAR HEMOGLOBIN 32.4 pg (28.0-32.0); MEAN CORPUSCULAR HGB CONC 35.4 g/dL (31.0-37.0); MEAN CORPUSCULAR VOLUME 91.5 fL (81.0-99.0); MEAN PLATELET VOLUME 7.7 fl (7.4-10.4); MONOCYTES % 6.1 % (2.0-8.0); NEUTROPHILS % 76.7 % (40.0-76.0); PLATELET 232 x1000/uL (130-400); RED CELL DISTRIBUTION WIDTH 16.3 % (11.6-14.6)
[2024-12-31 08:51] LABS: CREATININE 1.9 mg/dL (0.6-1.0); GLUCOSE 208 mg/dL (70-105); UREA NITROGEN BLOOD 28 mg/dL (9-23)
[2024-12-31 08:53] LABS: ALANINE AMINOTRANSFERASE > 1100 IU/L (10-49); ALBUMIN 4.1 g/dL (3.2-4.8); ASPARTATE AMINOTRANSFERASE > 1000 IU/L (<34); BILIRUBIN DIRECT 1.4 mg/dL (<=3.0); BILIRUBIN TOTAL 2.3 mg/dL (0.1-1.0); PROTEIN TOTAL 6.5 g/dL (6.0-8.3)
[2024-12-31] MEDS: DEXT 5%/0.9% NACL 1,000 ML IV SCH (10:35)
[2024-12-31] MEDS ORDERED: SODIUM POLYSTYRENE SULFONATE 15 G/60 ML BOT NG ONE (11:30)
[2024-12-31] MEDS ORDERED: SODIUM ZIRCONIUM CYCLOSILICATE 10GM/PACKET PO SCH (11:40)
[2024-12-31 12:00] VITALS: BP_SYST 124; BP_SYST 99; BP_DIAS 44; BP_DIAS 63; PULSE 57; RESP 14; TEMP 36.7; O2SAT 99
[2024-12-31 13:00] LABS: CREATINE KINASE 912 IU/L (34-145)
[2024-12-31 13:20] LABS: HEPATITIS B SURFACE ANTIGEN NEGATIVE (Negative)
[2024-12-31 13:40] LABS: HEPATITIS A AB IGM NEGATIVE (Negative)
[2024-12-31 13:41] LABS: HEPATITIS B CORE AB IGM NEGATIVE (Negative); HEPATITIS C AB NON REACTIVE (Neg) (Negative)
[2024-12-31] MEDS: LACTULOSE 20G/30ML UDC PO SCH (15:05)
[2024-12-31] MEDS: CLOPIDOGREL 75MG TABLET PO SCH (15:06)
[2024-12-31] MEDS: SODIUM ZIRCONIUM CYCLOSILICATE 10GM/PACKET NG SCH ×2 (15:08→15:09)
[2024-12-31 16:00] VITALS: BP 126/69; PULSE 66; RESP 16; TEMP 36.7; O2SAT 99
[2024-12-31 16:32] LABS: POTASSIUM 4.5 mEq/L (3.5-5.1)
[2024-12-31 16:38] LABS: CREATININE 2.1 mg/dL (0.6-1.0)
[2024-12-31 20:00] VITALS: BP 126/95; PULSE 66; RESP 12; TEMP 37.2; O2SAT 100
[2025-01-01] VITALS: BP 105/72; PULSE 63; RESP 14; TEMP 36.9; O2SAT 98
[2025-01-01 04:00] VITALS: BP 110/47; PULSE 63; RESP 13; TEMP 36.9; O2SAT 100
[2025-01-01 07:35] LABS: BASOPHILS % 0.7 % (0.0-2.0); EOSINOPHILS % 1.4 % (0.0-5.0); HEMATOCRIT. 25.3 % (36.0-48.0); LYMPHOCYTES % 10.9 % (20.0-50.0); MEAN CORPUSCULAR HEMOGLOBIN 31.7 pg (28.0-32.0); MEAN CORPUSCULAR HGB CONC 35.6 g/dL (31.0-37.0); MEAN CORPUSCULAR VOLUME 88.8 fL (81.0-99.0); MEAN PLATELET VOLUME 7.4 fl (7.4-10.4); MONOCYTES % 2.9 % (2.0-8.0); NEUTROPHILS % 84.1 % (40.0-76.0); PLATELET 166 x1000/uL (130-400); RED BLOOD CELL COUNT 2.85 mill/uL (4.2-5.4); RED CELL DISTRIBUTION WIDTH 16.8 % (11.6-14.6); WHITE BLOOD COUNT 5.7 x1000/uL (4.5-11.0)
[2025-01-01 07:44] LABS: CARBON DIOXIDE 23 mEq/L (21-32); CHLORIDE 94 mEq/L (98-107); POTASSIUM 3.4 mEq/L (3.5-5.1); SODIUM 128 mEq/L (136-145)
[2025-01-01 07:45] LABS: CALCIUM 8.7 mg/dL (8.7-10.4)
[2025-01-01 07:50] LABS: CREATININE 2.7 mg/dL (0.6-1.0); GLUCOSE 100 mg/dL (70-105); UREA NITROGEN BLOOD 37 mg/dL (9-23)
[2025-01-01 07:51] LABS: ALBUMIN 3.7 g/dL (3.2-4.8)
[2025-01-01 07:52] LABS: ALANINE AMINOTRANSFERASE > 1100 IU/L (10-49); ASPARTATE AMINOTRANSFERASE > 1000 IU/L (<34); BILIRUBIN DIRECT 1.7 mg/dL (<=3.0); BILIRUBIN TOTAL 2.7 mg/dL (0.1-1.0); DIGOXIN 1.7 ng/mL (0.8-2.0); PHOSPHORUS 2.2 mg/dL (2.5-4.9)
[2025-01-01 08:00] VITALS: BP 126/81; PULSE 66; RESP 12; TEMP 37.2; O2SAT 100
[2025-01-01 10:32] LABS: CLARITY URINE CLOUDY (CLEAR); COLOR URINE DARK YELLOW (YELLOW); GLUCOSE URINE TRACE (NEGATIVE); KETONES URINE NEGATIVE (NEGATIVE); LEUKOCYTE ESTERASE URINE NEGATIVE (NEGATIVE); NITRITE URINE NEGATIVE (NEGATIVE); OCCULT BLOOD URINE 2+ (NEGATIVE); PROTEIN URINE 2+ (NEGATIVE); SPECIFIC GRAVITY URINE 1.016 (1.005-1.030); UROBILINOGEN URINE 0.2 E.U./dL (0.2-1.0)
[2025-01-01 10:59] LABS: BACTERIA URINE TRACE; COARSE GRANULAR CASTS URINE 0-5 /lpf; HYALINE CASTS URINE 0-5 /lpf; SQUAMOUS EPITHELIAL CELL URINE RARE /lpf (RARE/1+); WBC URINE 0-2 /hpf (0-2); YEAST URINE NONE SEEN
[2025-01-01] MEDS ORDERED: LIDOCAINE HCL 1% 20ML VIAL ONE (11:45)
[2025-01-01 12:00] VITALS: BP 107/43; PULSE 62; RESP 11; TEMP 37; O2SAT 98
[2025-01-01 15:27] LABS: BG BASE EXCESS -1.5 mmol/L (-2.0-3.0); BG CARBOXYHEMOGLOBIN 0.5 % (0.5-1.5); BG DEOXYHEMOGLOBIN 4.8 % (0.0-5.0); BG FRACTION INSPIRED OXYGEN 21; BG HCO3 ACT 22.4 mmol/L (21.0-28.0); BG METHEMOGLOBIN 0.3 % (0.5-1.5); BG OXYGEN SATURATION 95.2 % (94.0-98.0); BG OXYHEMOGLOBIN 94.4 % (94.0-98.0); BG PCO2 34.5 mmHg (32.0-45.0); BG PH 7.431 (7.350-7.450); BG PO2 81.4 mmHg (83.0-108.0); BG SAMPLE SITE LEFT BRACHIAL; BG TOTAL HEMOGLOBIN 9.4 g/dL (12.0-16.0); BG VENT MODE ROOM AIR
[2025-01-01 16:00] VITALS: BP 120/49; PULSE 60; RESP 12; TEMP 37.1; O2SAT 100
[2025-01-01 17:23] LABS: AMMONIA 57 uMol/L (<32)
[2025-01-01 20:00] VITALS: BP 117/72; PULSE 61; RESP 14; TEMP 37.1; O2SAT 98
[2025-01-02] VITALS: BP 128/69; PULSE 69; RESP 15; TEMP 37; O2SAT 100
[2025-01-02 04:00] VITALS: BP 118/47; PULSE 60; RESP 15; TEMP 36.9; O2SAT 100
[2025-01-02 06:48] LABS: CHLORIDE 98 mEq/L (98-107); POTASSIUM 3.4 mEq/L (3.5-5.1); SODIUM 131 mEq/L (136-145)
[2025-01-02 06:49] LABS: CALCIUM 8.5 mg/dL (8.7-10.4); CARBON DIOXIDE 22 mEq/L (21-32)
[2025-01-02 06:54] LABS: CREATININE 3.1 mg/dL (0.6-1.0); GLUCOSE 110 mg/dL (70-105)
[2025-01-02 06:55] LABS: ALBUMIN 3.4 g/dL (3.2-4.8); UREA NITROGEN BLOOD 27 mg/dL (9-23)
[2025-01-02 06:56] LABS: ALANINE AMINOTRANSFERASE > 1100 IU/L (10-49); ASPARTATE AMINOTRANSFERASE > 1000 IU/L (<34)
[2025-01-02 06:57] LABS: BILIRUBIN TOTAL 2.9 mg/dL (0.1-1.0); PROTEIN TOTAL 5.8 g/dL (6.0-8.3)
[2025-01-02 07:53] LABS: BASOPHILS % 0.7 % (0.0-2.0); EOSINOPHILS % 2.7 % (0.0-5.0); HEMATOCRIT. 26.7 % (36.0-48.0); HEMOGLOBIN. 9.2 g/dL (12.0-16.0); LYMPHOCYTES % 11.8 % (20.0-50.0); MEAN CORPUSCULAR HEMOGLOBIN 31.4 pg (28.0-32.0); MEAN CORPUSCULAR HGB CONC 34.4 g/dL (31.0-37.0); MEAN CORPUSCULAR VOLUME 91.3 fL (81.0-99.0); MEAN PLATELET VOLUME 7.2 fl (7.4-10.4); MONOCYTES % 2.9 % (2.0-8.0); NEUTROPHILS % 81.9 % (40.0-76.0); PLATELET 131 x1000/uL (130-400); RED BLOOD CELL COUNT 2.93 mill/uL (4.2-5.4); RED CELL DISTRIBUTION WIDTH 16.7 % (11.6-14.6); WHITE BLOOD COUNT 4.1 x1000/uL (4.5-11.0)
[2025-01-02 08:00] VITALS: BP 120/57; PULSE 72; RESP 17; TEMP 36.9; O2SAT 99
[2025-01-02] MEDS: HEMORRHOIDAL SUPP PR SCH (08:55)
[2025-01-02] MEDS: POTASSIUM PHOSPHATE 15 MMOL in DEXT 5% WATER 245 ML IV ONE (10:00)
[2025-01-02 12:00] VITALS: BP 118/69; PULSE 57; RESP 12; TEMP 36.7; O2SAT 97
[2025-01-02 16:00] VITALS: BP 108/49; PULSE 58; RESP 22; TEMP 36.8; O2SAT 98
[2025-01-02 19:34] LABS: PROTHROMBIN TIME 19.9 sec (9.6-11.0)
[2025-01-02 20:00] VITALS: BP 115/51; PULSE 63; RESP 20; TEMP 36.3; O2SAT 100
[2025-01-02] MEDS: PIPERACILLIN/TAZO 3.375G/50ML 50 ML IV SCH (20:51)
[2025-01-03] VITALS: BP 106/44; PULSE 59; RESP 15; TEMP 36.7; O2SAT 100
[2025-01-03 04:00] VITALS: BP 96/46; PULSE 58; RESP 14; TEMP 36.4; O2SAT 99
[2025-01-03 07:39] LABS: CARBON DIOXIDE 20 mEq/L (21-32)
[2025-01-03 07:40] LABS: CALCIUM 8.2 mg/dL (8.7-10.4)
[2025-01-03 07:44] LABS: CREATININE 3.8 mg/dL (0.6-1.0); GLUCOSE 113 mg/dL (70-105); IRON 122 ug/dL (50-170)
[2025-01-03 07:45] LABS: UREA NITROGEN BLOOD 34 mg/dL (9-23)
[2025-01-03 07:46] LABS: ALBUMIN 3.5 g/dL (3.2-4.8); BILIRUBIN TOTAL 1.5 mg/dL (0.1-1.0)
[2025-01-03 07:47] LABS: BILIRUBIN DIRECT 0.9 mg/dL (<=3.0); PHOSPHORUS 3.5 mg/dL (2.5-4.9); PROTEIN TOTAL 5.9 g/dL (6.0-8.3); TOTAL IRON BINDING CAPACITY 262 ug/dl (250-425)
[2025-01-03 07:50] LABS: CHLORIDE 105 mEq/L (98-107); POTASSIUM 3.7 mEq/L (3.5-5.1); SODIUM 135 mEq/L (136-145)
[2025-01-03 08:00] VITALS: BP 108/47; PULSE 57; RESP 13; TEMP 36.4; O2SAT 100
[2025-01-03 08:13] LABS: ALANINE AMINOTRANSFERASE 1296 IU/L (10-49); ASPARTATE AMINOTRANSFERASE 1895 IU/L (<34)
[2025-01-03 09:37] LABS: BASOPHILS % 0.7 % (0.0-2.0); EOSINOPHILS % 4.8 % (0.0-5.0); HEMATOCRIT. 24.3 % (36.0-48.0); HEMOGLOBIN. 8.6 g/dL (12.0-16.0); LYMPHOCYTES % 22.9 % (20.0-50.0); MEAN CORPUSCULAR HEMOGLOBIN 31.9 pg (28.0-32.0); MEAN CORPUSCULAR HGB CONC 35.3 g/dL (31.0-37.0); MEAN CORPUSCULAR VOLUME 90.5 fL (81.0-99.0); MEAN PLATELET VOLUME 7.2 fl (7.4-10.4); NEUTROPHILS % 64.6 % (40.0-76.0); PLATELET 113 x1000/uL (130-400); RED BLOOD CELL COUNT 2.69 mill/uL (4.2-5.4); RED CELL DISTRIBUTION WIDTH 17.5 % (11.6-14.6); WHITE BLOOD COUNT 3.4 x1000/uL (4.5-11.0)
[2025-01-03 09:49] LABS: INR 1.4; PROTHROMBIN TIME 14.4 sec (9.6-11.0)
[2025-01-03 12:00] VITALS: BP 117/69; PULSE 72; RESP 9; TEMP 36.6; O2SAT 100
[2025-01-03 12:16] LABS: FOLIC ACID (FOLATE) SERUM 14.5 ng/mL (>5.38)
[2025-01-03 12:36] LABS: AMMONIA 17 uMol/L (<32)
[2025-01-03 12:37] LABS: CREATINE KINASE 1203 IU/L (34-145); PHOSPHORUS 3.6 mg/dL (2.5-4.9)
[2025-01-03 16:00] VITALS: BP 115/53; PULSE 59; RESP 9; TEMP 36.7; O2SAT 99
[2025-01-03 20:00] VITALS: BP 104/57; PULSE 64; RESP 15; TEMP 36.3; O2SAT 100
[2025-01-04] VITALS: BP 113/47; PULSE 62; RESP 14; TEMP 36.2; O2SAT 99
[2025-01-04 04:00] VITALS: BP 104/51; PULSE 62; RESP 15; TEMP 36.2; O2SAT 97
[2025-01-04 07:27] LABS: CHLORIDE 107 mEq/L (98-107); POTASSIUM 3.4 mEq/L (3.5-5.1); SODIUM 139 mEq/L (136-145)
[2025-01-04 07:29] LABS: CALCIUM 7.6 mg/dL (8.7-10.4); CARBON DIOXIDE 21 mEq/L (21-32)
[2025-01-04 07:34] LABS: CREATININE 3.4 mg/dL (0.6-1.0); GLUCOSE 93 mg/dL (70-105); UREA NITROGEN BLOOD 32 mg/dL (9-23)
[2025-01-04 07:36] LABS: ALANINE AMINOTRANSFERASE 1020 IU/L (10-49); ALBUMIN 3.3 g/dL (3.2-4.8); ASPARTATE AMINOTRANSFERASE > 1000 IU/L (<34); BILIRUBIN DIRECT 0.7 mg/dL (<=3.0); BILIRUBIN TOTAL 1.2 mg/dL (0.1-1.0); PROTEIN TOTAL 5.7 g/dL (6.0-8.3)
[2025-01-04 08:00] VITALS: BP 107/53; PULSE 70; RESP 21; TEMP 36.4; O2SAT 97
[2025-01-04 08:01] LABS: BASOPHILS % 0.6 % (0.0-2.0); EOSINOPHILS % 5.1 % (0.0-5.0); HEMATOCRIT. 23.5 % (36.0-48.0); HEMOGLOBIN. 8.1 g/dL (12.0-16.0); LYMPHOCYTES % 27.6 % (20.0-50.0); MEAN CORPUSCULAR HEMOGLOBIN 31.5 pg (28.0-32.0); MEAN CORPUSCULAR HGB CONC 34.6 g/dL (31.0-37.0); MEAN CORPUSCULAR VOLUME 90.9 fL (81.0-99.0); MEAN PLATELET VOLUME 7.2 fl (7.4-10.4); MONOCYTES % 8.7 % (2.0-8.0); PLATELET 92 x1000/uL (130-400); RED BLOOD CELL COUNT 2.59 mill/uL (4.2-5.4); RED CELL DISTRIBUTION WIDTH 18.1 % (11.6-14.6); WHITE BLOOD COUNT 3.9 x1000/uL (4.5-11.0)
[2025-01-04] MEDS: KCL 20MEQ/100ML PREMIX 100 ML IV SCH (09:35)
[2025-01-04 12:00] VITALS: BP 119/68; PULSE 66; RESP 19; TEMP 36.7; O2SAT 99
[2025-01-04 16:00] VITALS: BP 115/60; PULSE 55; RESP 11; TEMP 36.8; O2SAT 98
[2025-01-04 20:00] VITALS: BP 126/61; PULSE 63; RESP 21; TEMP 36.8; O2SAT 100
[2025-01-04] MEDS: CEFEPIME 1GM/50ML 50 ML IV SCH (20:53)
[2025-01-04] MEDS: METRONIDAZOLE 500 MG PREMIX 100 ML IV SCH (20:53)
[2025-01-05] VITALS: BP 120/45; PULSE 61; RESP 11; TEMP 36.4; O2SAT 99
[2025-01-05 04:00] VITALS: BP 112/43; PULSE 65; RESP 19; TEMP 36.6; O2SAT 98
[2025-01-05 05:10] LABS: BASOPHILS % 0.8 % (0.0-2.0); EOSINOPHILS % 4.4 % (0.0-5.0); HEMATOCRIT. 25.4 % (36.0-48.0); HEMOGLOBIN. 8.5 g/dL (12.0-16.0); LYMPHOCYTES % 26.2 % (20.0-50.0); MEAN CORPUSCULAR HEMOGLOBIN 31.2 pg (28.0-32.0); MEAN CORPUSCULAR HGB CONC 33.5 g/dL (31.0-37.0); MEAN CORPUSCULAR VOLUME 93.2 fL (81.0-99.0); MEAN PLATELET VOLUME 7.3 fl (7.4-10.4); MONOCYTES % 9.1 % (2.0-8.0); NEUTROPHILS % 59.5 % (40.0-76.0); PLATELET 81 x1000/uL (130-400); RED BLOOD CELL COUNT 2.72 mill/uL (4.2-5.4); RED CELL DISTRIBUTION WIDTH 18.9 % (11.6-14.6); WHITE BLOOD COUNT 4.2 x1000/uL (4.5-11.0)
[2025-01-05 05:31] LABS: AMMONIA 47 uMol/L (<32)
[2025-01-05 05:49] LABS: CHLORIDE 111 mEq/L (98-107); POTASSIUM 3.8 mEq/L (3.5-5.1); SODIUM 141 mEq/L (136-145)
[2025-01-05 05:50] LABS: CALCIUM 7.7 mg/dL (8.7-10.4); CARBON DIOXIDE 21 mEq/L (21-32)
[2025-01-05 05:55] LABS: GLUCOSE 97 mg/dL (70-105); UREA NITROGEN BLOOD 24 mg/dL (9-23)
[2025-01-05 05:57] LABS: ALANINE AMINOTRANSFERASE 782 IU/L (10-49); ALBUMIN 3.3 g/dL (3.2-4.8); ASPARTATE AMINOTRANSFERASE 798 IU/L (<34); BILIRUBIN DIRECT 0.6 mg/dL (<=3.0)
[2025-01-05 05:58] LABS: PHOSPHORUS 2.2 mg/dL (2.5-4.9); PROTEIN TOTAL 5.7 g/dL (6.0-8.3)
[2025-01-05 06:06] LABS: CREATININE URINE RANDOM 133.3 mg/dL
[2025-01-05 07:16] LABS: CREATININE 2.3 mg/dL (0.6-1.0)
[2025-01-05 07:30] LABS: TRIGLYCERIDE 169 mg/dL (0-150)
[2025-01-05 07:31] LABS: LDL CHOLESTEROL 131 mg/dL (5-100)
[2025-01-05 07:32] LABS: CHOLESTEROL 183 mg/dL (<200); HDL CHOLESTEROL < 20 mg/dL (>65)
[2025-01-05 08:00] VITALS: BP 114/57; PULSE 62; RESP 17; TEMP 36.7; O2SAT 98
[2025-01-05] MEDS: LACTULOSE 20G/30ML UDC PO SCH ×2 (09:00→09:50)
[2025-01-05] MEDS: POTASSIUM-SODIUM PHOSPHATE POWDER PACKET PO SCH (09:51)
[2025-01-05] MEDS: APIXABAN 5 MG TABLET PO NR (09:52)
[2025-01-05] MEDS: ASPIRIN 81MG TABLET PO SCH (09:57)
[2025-01-05 12:00] VITALS: BP 127/69; PULSE 66; RESP 13; TEMP 37.1; O2SAT 100
[2025-01-05] MEDS: DIATR MEGLU/DIATRIZOATE SOLN 30ML PO SCH (12:31)
[2025-01-05 16:00] VITALS: BP 128/73; PULSE 63; RESP 14; TEMP 37; O2SAT 100
[2025-01-05 20:00] VITALS: BP 136/85; PULSE 91; RESP 20; TEMP 36.7; O2SAT 99
[2025-01-05] MEDS: IOHEXOL-300 100 ML BOTTLE ONE (23:21)
[2025-01-06] VITALS: BP 129/55; PULSE 100; RESP 11; TEMP 37.1; O2SAT 97
[2025-01-06 04:00] VITALS: BP 127/63; PULSE 108; RESP 21; TEMP 36.8; O2SAT 98
[2025-01-06 05:49] LABS: BASOPHILS % 0.7 % (0.0-2.0); EOSINOPHILS % 5.5 % (0.0-5.0); HEMATOCRIT. 25.8 % (36.0-48.0); HEMOGLOBIN. 8.4 g/dL (12.0-16.0); LYMPHOCYTES % 29.1 % (20.0-50.0); MEAN CORPUSCULAR HEMOGLOBIN 30.4 pg (28.0-32.0); MEAN CORPUSCULAR HGB CONC 32.6 g/dL (31.0-37.0); MEAN PLATELET VOLUME 7.3 fl (7.4-10.4); MONOCYTES % 7.5 % (2.0-8.0); NEUTROPHILS % 57.2 % (40.0-76.0); PLATELET 81 x1000/uL (130-400); RED BLOOD CELL COUNT 2.77 mill/uL (4.2-5.4); RED CELL DISTRIBUTION WIDTH 18.9 % (11.6-14.6)
[2025-01-06 06:00] LABS: CHLORIDE 111 mEq/L (98-107); POTASSIUM 3.3 mEq/L (3.5-5.1); SODIUM 141 mEq/L (136-145)
[2025-01-06 06:03] LABS: CARBON DIOXIDE 19 mEq/L (21-32)
[2025-01-06 06:08] LABS: GLUCOSE 70 mg/dL (70-105); UREA NITROGEN BLOOD 12 mg/dL (9-23)
[2025-01-06 06:10] LABS: ALANINE AMINOTRANSFERASE 633 IU/L (10-49); ALBUMIN 3.3 g/dL (3.2-4.8); ASPARTATE AMINOTRANSFERASE 515 IU/L (<34); BILIRUBIN DIRECT 0.5 mg/dL (<=3.0); PROTEIN TOTAL 5.7 g/dL (6.0-8.3)
[2025-01-06 06:19] LABS: CREATININE 1.4 mg/dL (0.6-1.0)
[2025-01-06 08:00] VITALS: BP 116/69; PULSE 95; RESP 14; TEMP 37; O2SAT 99
[2025-01-06] MEDS: POTASSIUM CHLORIDE 20MEQ/PACKET PO SCH (09:47)
[2025-01-06 10:21] LABS: AMMONIA 17 uMol/L (<32)
[2025-01-06 12:00] VITALS: BP 138/68; PULSE 83; RESP 12; TEMP 36.8; O2SAT 100
[2025-01-06 16:01] VITALS: BP 130/79; PULSE 99; RESP 12; TEMP 37.1; O2SAT 98
[2025-01-06 20:00] VITALS: BP 135/78; PULSE 95; RESP 15; TEMP 36.7; O2SAT 98
[2025-01-06] MEDS: CEFEPIME 2GM PREMIX 100ML IV SCH (20:15)
[2025-01-07] VITALS: BP 133/67; PULSE 102; RESP 14; TEMP 36.8; O2SAT 97
[2025-01-07 04:00] VITALS: PULSE 105; RESP 18; O2SAT 99
[2025-01-07 05:06] VITALS: BP 128/65; PULSE 91; RESP 18; TEMP 37.1; O2SAT 99
[2025-01-07 08:00] VITALS: BP 117/60; PULSE 94; RESP 21; TEMP 36.9; O2SAT 94
[2025-01-07 08:55] LABS: BASOPHILS % 0.9 % (0.0-2.0); EOSINOPHILS % 5.1 % (0.0-5.0); HEMATOCRIT. 24.5 % (36.0-48.0); HEMOGLOBIN. 8.2 g/dL (12.0-16.0); LYMPHOCYTES % 29.9 % (20.0-50.0); MEAN CORPUSCULAR HEMOGLOBIN 30.6 pg (28.0-32.0); MEAN CORPUSCULAR HGB CONC 33.6 g/dL (31.0-37.0); MEAN CORPUSCULAR VOLUME 91.1 fL (81.0-99.0); MEAN PLATELET VOLUME 7.1 fl (7.4-10.4); MONOCYTES % 7.9 % (2.0-8.0); NEUTROPHILS % 56.2 % (40.0-76.0); PLATELET 87 x1000/uL (130-400); RED BLOOD CELL COUNT 2.69 mill/uL (4.2-5.4); RED CELL DISTRIBUTION WIDTH 17.9 % (11.6-14.6); WHITE BLOOD COUNT 4.3 x1000/uL (4.5-11.0)
[2025-01-07 09:04] LABS: CHLORIDE 110 mEq/L (98-107); POTASSIUM 3.2 mEq/L (3.5-5.1); SODIUM 140 mEq/L (136-145)
[2025-01-07 09:05] LABS: CALCIUM 8.2 mg/dL (8.7-10.4); CARBON DIOXIDE 23 mEq/L (21-32)
[2025-01-07 09:10] LABS: GLUCOSE 86 mg/dL (70-105); UREA NITROGEN BLOOD 8 mg/dL (9-23)
[2025-01-07 09:11] LABS: AMMONIA < 17 uMol/L (<32)
[2025-01-07 09:12] LABS: ALANINE AMINOTRANSFERASE 472 IU/L (10-49); ALBUMIN 3.3 g/dL (3.2-4.8); ASPARTATE AMINOTRANSFERASE 304 IU/L (<34); BILIRUBIN DIRECT 0.5 mg/dL (<=3.0); PROTEIN TOTAL 5.6 g/dL (6.0-8.3)
[2025-01-07] MEDS: POTASSIUM CHLORIDE 20MEQ TABLET SR PO NR (09:27)
[2025-01-07] MEDS ORDERED: LACT10SO81 MT (09:59)
[2025-01-07] MEDS ORDERED: ASPI-1406 MT (09:59)
[2025-01-07] MEDS ORDERED: CARV3.1242 MT (09:59)
[2025-01-07] MEDS ORDERED: LOSA25TA26 MT (09:59)
[2025-01-07] MEDS ORDERED: APIX5TAB MT (09:59)
[2025-01-07 11:19] VITALS: BP 132/72; PULSE 94; TEMP 97.8; O2SAT 99
[2025-01-07 12:00] VITALS: BP 121/79; PULSE 105; RESP 14; TEMP 36.6; O2SAT 100
[2025-01-07 14:13] LABS: ANA IFA Positive (.)
== END 2025-01-07 14:38 | disposition home health service (06) | DRG 175 ==
LOC: ER 04:53 → EDBEDREQ 06:42 → EDBEDREQSVC 06:42 → 8EST 09:36 → EDBEDREQ 09:37 → EDBEDREQTM 09:37 → ENRESERV 09:40 → 6WST 12-27 20:00 → 3WST 12-29 10:50
PROVIDERS: ADMIT Internal Medicine; ATTEND Internal Medicine
PROC: 027035Z Dilation of Coronary Artery, One Artery with Two Drug-eluting Intraluminal Devices, Percutaneous Approach (ICD-10-PCS; principal; 2024-12-29)
PROC: 4A023N7 Measurement of Cardiac Sampling and Pressure, Left Heart, Percutaneous Approach (ICD-10-PCS; 2024-12-29)
PROC: B211YZZ Fluoroscopy of Multiple Coronary Arteries using Other Contrast (ICD-10-PCS; 2024-12-29)
PROC: 02HV33Z Insertion of Infusion Device into Superior Vena Cava, Percutaneous Approach (ICD-10-PCS; 2025-01-01)
PROC: B5181ZA Fluoroscopy of Superior Vena Cava using Low Osmolar Contrast, Guidance (ICD-10-PCS; 2025-01-01)
PROC: B548ZZA Ultrasonography of Superior Vena Cava, Guidance (ICD-10-PCS; 2025-01-01)
DX: I25.110 Atherosclerotic heart disease of native coronary artery with unstable angina pectoris (principal); K72.00 Acute and subacute hepatic failure without coma; I63.9 Cerebral infarction, unspecified; K76.7 Hepatorenal syndrome; N17.0 Acute kidney failure with tubular necrosis; K56.609 Unspecified intestinal obstruction, unspecified as to partial versus complete obstruction; G93.40 Encephalopathy, unspecified; I13.0 Hypertensive heart and chronic kidney disease with heart failure and stage 1 through stage 4 chronic kidney disease, or unspecified chronic kidney disease; I50.23 Acute on chronic systolic (congestive) heart failure; Z20.822 Contact with and (suspected) exposure to COVID-19; E11.649 Type 2 diabetes mellitus with hypoglycemia without coma; R18.8 Other ascites; E87.1 Hypo-osmolality and hyponatremia; E11.22 Type 2 diabetes mellitus with diabetic chronic kidney disease; D64.9 Anemia, unspecified; E87.5 Hyperkalemia; I48.0 Paroxysmal atrial fibrillation; E03.9 Hypothyroidism, unspecified; K76.0 Fatty (change of) liver, not elsewhere classified; K76.1 Chronic passive congestion of liver; N18.9 Chronic kidney disease, unspecified; T46.0X5A Adverse effect of cardiac-stimulant glycosides and drugs of similar action, initial encounter; K59.09 Other constipation; K35.80 Unspecified acute appendicitis; Z79.899 Other long term (current) drug therapy; Y92.89 Other specified places as the place of occurrence of the external cause; Z82.49 Family history of ischemic heart disease and other diseases of the circulatory system; Z83.3 Family history of diabetes mellitus; Z90.49 Acquired absence of other specified parts of digestive tract; Z78.1 Physical restraint status
CPT/HCPCS: 36415; 36573; 36600; 70551; 71045; 71275; 74018; 74176; 74181; 76700; 76857; 80048; 80053; 80061; 80076; 80162; 80305; 81003; 82140; 82375; 82550; 82570; 82607; 82728; 82746; 82805; 82962; 83036; 83540; 83550; 83735; 83880; 83930; 83935; 84100; 84300; 84443; 85025; 85044; 85347; 85379; 86256; 86705; 86709; 87340; 87426; 92928; 93005; 93306; 93458; 93970; 97116; 97162; 97166; 97530; 97535; 99291; A4606; C1725; C1769; C1874; C1887; J0461; J0692; J0696; J1160; J1200; J1308; J1644; J1650; J1885; J1940; J2003; J2250; J2405; J2470; J2543; J3010; J3480; J3490; J7030; J7042; J7060; Q9963; Q9967

== ENCOUNTER 2025-02-07 09:14 | Inpatient (IN) | payer MEDICAID ==
[~2025-02-07] VITALS: Ht 162.6 cm; Wt 72.2 kg
[~2025-02-07 09:14] MED LIST changes: +APIX5TAB MT; -ASPI-1160 PO; +ASPI-1406 MT; +CARV3.1242 MT; +CLOP75TA33 PO; +FLUD0.1T PO; +HYDR-4379 MT; -LEVO-65 MT; -P20 MT; -POLY15DR31 LEFTEYE; -PRED5TAB MT; +SODI650T PO; -VALA100044 MT
[2025-02-07] MEDS: DEXTROSE 50% WATER 50ML SYRINGE IV ONE (09:28)
[2025-02-07 09:45] LABS: BASOPHILS % 0.9 % (0.0-2.0); EOSINOPHILS % 0.9 % (0.0-5.0); HEMATOCRIT. 24.8 % (36.0-48.0); HEMOGLOBIN. 8.1 g/dL (12.0-16.0); LYMPHOCYTES % 32.1 % (20.0-50.0); MEAN PLATELET VOLUME 7.7 fl (7.4-10.4); MONOCYTES % 4.0 % (2.0-8.0); NEUTROPHILS % 62.1 % (40.0-76.0); PLATELET 155 x1000/uL (130-400); RED BLOOD CELL COUNT 2.55 mill/uL (4.2-5.4); RED CELL DISTRIBUTION WIDTH 20.1 % (11.6-14.6)
[2025-02-07 10:05] LABS: CREATININE 2.4 mg/dL (0.6-1.0); TROPONIN I HIGH SENSITIVITY 27 ng/L (3.0-34); UREA NITROGEN BLOOD 43 mg/dL (9-23)
[2025-02-07 10:07] LABS: ASPARTATE AMINOTRANSFERASE 230 IU/L (<34)
[2025-02-07 10:08] LABS: BILIRUBIN DIRECT 2.1 mg/dL (<=3.0); BILIRUBIN TOTAL 3.4 mg/dL (0.1-1.0); PROTEIN TOTAL 5.5 g/dL (6.0-8.3)
[2025-02-07] MEDS: SODIUM CHLORIDE 0.9% (SEPSIS BOLUS) IV ONE (10:57)
[2025-02-07] MEDS ORDERED: DEXTROSE 50% WATER 50ML SYRINGE IV ONE (11:27)
[2025-02-07] MEDS: DEXTROSE 50% WATER 50ML SYRINGE IV PRN (11:28)
[2025-02-07] MEDS: PIPERACILLIN/TAZO 3.375G/50ML 50 ML IV ONE (11:41)
[2025-02-07] MEDS: VANCOMYCIN 1G PREMIX 200 ML IV ONE (12:45)
[2025-02-07] MEDS ORDERED: ONDANSETRON HCL 4MG/2ML INJ IV PRN (17:15)
[2025-02-07] MEDS ORDERED: ACETAMINOPHEN 325MG TABLET PO PRN (17:15)
[2025-02-07] MEDS ORDERED: LORAZEPAM 0.5MG TABLET PO PRN (17:15)
[2025-02-07] MEDS ORDERED: ZOLPIDEM TARTRATE 5MG TABLET PO PRN (17:15)
[2025-02-07] MEDS ORDERED: CLONIDINE 0.1MG TABLET PO PRN (17:15)
[2025-02-07] MEDS ORDERED: MAGNESIUM/ALUMINUM HYDROXIDE/SIMETHICONE 30ML UDC PO PRN (17:15)
[2025-02-07] MEDS ORDERED: DEXT 5%/0.9% NACL 1,000 ML IV SCH (17:15)
[2025-02-07] MEDS ORDERED: ENOXAPARIN 40MG/0.4ML SYR SUBCUT SCH (17:15)
[2025-02-07] MEDS ORDERED: IPRATROPIUM/ALBUTEROL 0.5-3(2.5)MG/3ML NEB NEB PRN (17:15)
[2025-02-07] MEDS ORDERED: DEXTROSE 50% WATER 50ML SYRINGE IV PRN (17:15)
[2025-02-07] MEDS ORDERED: SODIUM CHLORIDE 0.9% 1,000 ML IV ONE (17:30)
[2025-02-07] MEDS: DIGOXIN 500MCG/2ML AMP IV SCH ×2 (18:00→21:47)
[2025-02-07 18:35] VITALS: BP 123/72; PULSE 135; RESP 20; TEMP 36.7; O2SAT 100
[2025-02-07] MEDS ORDERED: NALOXONE HCL 0.4MG/ML VIAL IV PRN (19:15)
[2025-02-07 20:00] VITALS: BP 142/84; PULSE 122; RESP 20; TEMP 36.6; O2SAT 100
[2025-02-07] MEDS: BLOOD SUGAR DIAGNOSTIC STRIP TEST SCH (21:00)
[2025-02-07] MEDS: INSULIN LISPRO 100 UNITS/ML SUBCUT SCH (21:00)
[2025-02-07] MEDS ORDERED: HYDROCORTISONE 10MG TABLET PO SCH (21:00)
[2025-02-07] MEDS: FUROSEMIDE 40MG/4ML VIAL IVP SCH (21:49)
[2025-02-07] MEDS: HYDROCORTISONE SOD SUCCINATE 100 MG/2 ML VIAL IV SCH (22:01)
[2025-02-07] MEDS: ATORVASTATIN CALCIUM 40MG TABLET PO SCH (22:01)
[2025-02-07] MEDS: APIXABAN 5 MG TABLET PO SCH (22:01)
[2025-02-07] MEDS: DOCUSATE SODIUM 100MG CAPSULE PO SCH (22:01)
[2025-02-07] MEDS: CARVEDILOL 3.125 MG TABLET PO SCH (22:06)
[2025-02-07] MEDS: VANCOMYCIN 750MG PREMIX 150 ML IV SCH (23:26)
[2025-02-08] VITALS (7 sets, daily range): BP systolic 93–129; BP diastolic 47–79; PULSE 64–114; RESP 16–20; TEMP 36.4–36.8; O2SAT 93–100
[2025-02-08] MEDS ORDERED: METOPROLOL TARTRATE 5MG/5ML VIAL IV NR (00:15)
[2025-02-08 01:16] LABS: TROPONIN I HIGH SENSITIVITY 52 ng/L (3.0-34)
[2025-02-08] MEDS: PIPERACILLIN/TAZO 3.375G/50ML 50 ML IV SCH (02:01)
[2025-02-08] MEDS: DIGOXIN 500MCG/2ML AMP IV NR (02:02)
[2025-02-08] MEDS: HYDROCODONE/ACETAMINOPHEN 5/325MG TABLET PO PRN (06:29)
[2025-02-08] MEDS: LEVOTHYROXINE SODIUM 50MCG TABLET PO SCH (06:49)
[2025-02-08] MEDS: PANTOPRAZOLE SODIUM 40 MG/VIAL IV SCH (08:52)
[2025-02-08] MEDS: CLOPIDOGREL 75MG TABLET PO SCH (08:52)
[2025-02-08] MEDS: FLUDROCORTISONE ACETATE 0.1MG TABLET PO SCH (08:53)
[2025-02-08] MEDS: ASPIRIN 81MG EC TABLET PO SCH (08:53)
[2025-02-08] MEDS ORDERED: FENOFIBRATE NANOCRYSTALLIZED 145MG TABLET PO SCH (09:00)
[2025-02-08 12:32] LABS: BASOPHILS % 0.2 % (0.0-2.0); EOSINOPHILS % 0.1 % (0.0-5.0); HEMATOCRIT. 26.4 % (36.0-48.0); HEMOGLOBIN. 8.9 g/dL (12.0-16.0); LYMPHOCYTES % 12.8 % (20.0-50.0); MEAN PLATELET VOLUME 7.9 fl (7.4-10.4); MONOCYTES % 1.7 % (2.0-8.0); NEUTROPHILS % 85.2 % (40.0-76.0); PLATELET 156 x1000/uL (130-400); RED BLOOD CELL COUNT 2.80 mill/uL (4.2-5.4); RED CELL DISTRIBUTION WIDTH 19.8 % (11.6-14.6)
[2025-02-08 12:57] LABS: CREATININE 2.6 mg/dL (0.6-1.0); TROPONIN I HIGH SENSITIVITY 27.0 ng/L (3.0-34); UREA NITROGEN BLOOD 45.0 mg/dL (9-23)
[2025-02-08] MEDS ORDERED: VANCOMYCIN 500MG PREMIX 100 ML IV SCH (13:00)
[2025-02-08] MEDS: FUROSEMIDE 40MG/4ML VIAL IVP SCH (13:42)
[2025-02-09] VITALS (7 sets, daily range): BP systolic 110–142; BP diastolic 46–67; PULSE 58–74; RESP 17–19; TEMP 35.8–36.7; O2SAT 95–98
[2025-02-09 08:00] LABS: BASOPHILS % 0.0 % (0.0-2.0); EOSINOPHILS % 0.0 % (0.0-5.0); HEMATOCRIT. 25.0 % (36.0-48.0); HEMOGLOBIN. 8.7 g/dL (12.0-16.0); LYMPHOCYTES % 11.1 % (20.0-50.0); MEAN PLATELET VOLUME 7.7 fl (7.4-10.4); MONOCYTES % 1.8 % (2.0-8.0); NEUTROPHILS % 87.1 % (40.0-76.0); PLATELET 183 x1000/uL (130-400); RED BLOOD CELL COUNT 2.67 mill/uL (4.2-5.4); RED CELL DISTRIBUTION WIDTH 19.7 % (11.6-14.6)
[2025-02-09 08:12] LABS: CREATININE 2.7 mg/dL (0.6-1.0)
[2025-02-09 08:13] LABS: UREA NITROGEN BLOOD 46.0 mg/dL (9-23)
[2025-02-09] MEDS ORDERED: LIDOCAINE HCL 1% 10 MG/ML 10ML VIAL ONE (10:47)
[2025-02-09] MEDS: POTASSIUM CHLORIDE 20MEQ TABLET SR PO SCH (15:10)
[2025-02-09] MEDS: VANCOMYCIN 750MG/150ML (BAXTER) IV SCH (16:40)
[2025-02-10] VITALS: BP 112/78; PULSE 65; RESP 19; TEMP 36.6; O2SAT 98
[2025-02-10 04:00] VITALS: BP 109/63; PULSE 66; RESP 19; TEMP 36.9; O2SAT 98
[2025-02-10 07:37] LABS: BASOPHILS % 0.0 % (0.0-2.0); EOSINOPHILS % 0.0 % (0.0-5.0); HEMATOCRIT. 23.6 % (36.0-48.0); HEMOGLOBIN. 8.2 g/dL (12.0-16.0); LYMPHOCYTES % 12.8 % (20.0-50.0); MEAN PLATELET VOLUME 7.7 fl (7.4-10.4); MONOCYTES % 1.9 % (2.0-8.0); NEUTROPHILS % 85.3 % (40.0-76.0); PLATELET 185 x1000/uL (130-400); RED BLOOD CELL COUNT 2.52 mill/uL (4.2-5.4); RED CELL DISTRIBUTION WIDTH 20.1 % (11.6-14.6)
[2025-02-10 07:51] LABS: CREATININE 2.7 mg/dL (0.6-1.0)
[2025-02-10 07:52] LABS: UREA NITROGEN BLOOD 47.0 mg/dL (9-23)
[2025-02-10 08:08] VITALS: BP 148/66; PULSE 56; RESP 20; TEMP 36.2; O2SAT 97
[2025-02-10 12:00] VITALS: BP 121/52; PULSE 50; RESP 20; TEMP 35.6; O2SAT 100
[2025-02-10] MEDS: SPIRONOLACTONE 25MG TABLET PO SCH (15:33)
[2025-02-10 16:00] VITALS: BP 110/53; PULSE 56; RESP 20; TEMP 35.9; O2SAT 99
[2025-02-10 20:00] VITALS: BP 125/58; PULSE 58; RESP 19; TEMP 36.8; O2SAT 98
[2025-02-11] VITALS: BP 134/62; PULSE 60; RESP 19; TEMP 36.6; O2SAT 97
[2025-02-11 04:00] VITALS: BP 126/59; PULSE 66; RESP 18; TEMP 36.7; O2SAT 97
[2025-02-11 08:00] VITALS: BP 138/61; PULSE 60; RESP 16; TEMP 35.4; O2SAT 99
[2025-02-11 12:00] VITALS: BP 142/60; PULSE 60; RESP 16; TEMP 36.3; O2SAT 100
[2025-02-11] MEDS: KCL 20MEQ/100ML PREMIX 100 ML IV SCH (12:21)
[2025-02-11 13:04] LABS: BASOPHILS % 0.1 % (0.0-2.0); EOSINOPHILS % 0.0 % (0.0-5.0); HEMATOCRIT. 21.6 % (36.0-48.0); HEMOGLOBIN. 7.5 g/dL (12.0-16.0); LYMPHOCYTES % 14.0 % (20.0-50.0); MEAN PLATELET VOLUME 7.4 fl (7.4-10.4); MONOCYTES % 2.6 % (2.0-8.0); NEUTROPHILS % 83.3 % (40.0-76.0); PLATELET 191 x1000/uL (130-400); RED BLOOD CELL COUNT 2.32 mill/uL (4.2-5.4); RED CELL DISTRIBUTION WIDTH 19.9 % (11.6-14.6)
[2025-02-11 13:21] LABS: CREATININE 2.7 mg/dL (0.6-1.0); UREA NITROGEN BLOOD 47 mg/dL (9-23)
[2025-02-11 16:00] VITALS: BP 154/63; PULSE 70; RESP 18; TEMP 36.1; O2SAT 100
[2025-02-11 20:00] VITALS: BP 128/58; PULSE 62; RESP 18; TEMP 36.3; O2SAT 96
[2025-02-12] VITALS: BP 120/60; PULSE 66; RESP 18; TEMP 36.1; O2SAT 98
[2025-02-12 04:00] VITALS: BP 138/61; PULSE 58; RESP 19; TEMP 36.4; O2SAT 97
[2025-02-12 08:00] VITALS: BP 155/66; PULSE 69; RESP 18; TEMP 36.4; O2SAT 96
[2025-02-12 11:12] LABS: BASOPHILS % 0.0 % (0.0-2.0); EOSINOPHILS % 0.0 % (0.0-5.0); HEMOGLOBIN. 7.1 g/dL (12.0-16.0); LYMPHOCYTES % 15.6 % (20.0-50.0); MEAN PLATELET VOLUME 7.2 fl (7.4-10.4); MONOCYTES % 2.6 % (2.0-8.0); NEUTROPHILS % 81.8 % (40.0-76.0); PLATELET 197 x1000/uL (130-400); RED BLOOD CELL COUNT 2.21 mill/uL (4.2-5.4); RED CELL DISTRIBUTION WIDTH 20.1 % (11.6-14.6)
[2025-02-12 11:25] LABS: CREATININE 2.6 mg/dL (0.6-1.0); UREA NITROGEN BLOOD 44.0 mg/dL (9-23)
[2025-02-12 11:45] LABS: HEMATOCRIT. 20.9 % (36.0-48.0)
[2025-02-12 12:00] VITALS: BP 144/54; PULSE 56; RESP 20; TEMP 36.1
[2025-02-12 13:34] VITALS: BP 144/54; PULSE 56; TEMP 97; O2SAT 100
[2025-02-12 16:00] VITALS: BP 118/61; PULSE 61; RESP 20; TEMP 36.3; O2SAT 96
[2025-02-12 18:53] LABS: PHOSPHORUS 4.1 mg/dL (2.5-4.9)
== END 2025-02-12 18:31 | disposition home health service (06) | DRG 420 ==
LOC: ER 09:14 → EDBEDREQTM 10:59 → EDBEDREQ 10:59 → ENRESERV 17:47 → 8WST 19:07
PROVIDERS: ADMIT Internal Medicine; ATTEND Internal Medicine
PROC: 02HV33Z Insertion of Infusion Device into Superior Vena Cava, Percutaneous Approach (ICD-10-PCS; principal; 2025-02-09)
PROC: B548ZZA Ultrasonography of Superior Vena Cava, Guidance (ICD-10-PCS; 2025-02-09)
DX: E11.649 Type 2 diabetes mellitus with hypoglycemia without coma (principal); N17.0 Acute kidney failure with tubular necrosis; J96.91 Respiratory failure, unspecified with hypoxia; I50.23 Acute on chronic systolic (congestive) heart failure; J18.9 Pneumonia, unspecified organism; I42.0 Dilated cardiomyopathy; I13.0 Hypertensive heart and chronic kidney disease with heart failure and stage 1 through stage 4 chronic kidney disease, or unspecified chronic kidney disease; E27.2 Addisonian crisis; R18.8 Other ascites; E87.1 Hypo-osmolality and hyponatremia; N18.1 Chronic kidney disease, stage 1; E83.42 Hypomagnesemia; E11.22 Type 2 diabetes mellitus with diabetic chronic kidney disease; R80.9 Proteinuria, unspecified; E87.6 Hypokalemia; R74.01 Elevation of levels of liver transaminase levels; R13.10 Dysphagia, unspecified; I25.10 Atherosclerotic heart disease of native coronary artery without angina pectoris; I48.0 Paroxysmal atrial fibrillation; T46.0X5A Adverse effect of cardiac-stimulant glycosides and drugs of similar action, initial encounter; D64.9 Anemia, unspecified; E03.9 Hypothyroidism, unspecified; E78.5 Hyperlipidemia, unspecified; Z82.49 Family history of ischemic heart disease and other diseases of the circulatory system; Z59.00 Homelessness unspecified; Z83.3 Family history of diabetes mellitus; Z86.73 Personal history of transient ischemic attack (TIA), and cerebral infarction without residual deficits; Z90.49 Acquired absence of other specified parts of digestive tract; Z91.148 Patient's other noncompliance with medication regimen for other reason
CPT/HCPCS: 36415; 36573; 71045; 80048; 80076; 80162; 80202; 82533; 82962; 83036; 83605; 83735; 84100; 84145; 84443; 84484; 85025; 86850; 86900; 93005; 93308; 93970; 94640; 99291; A4606; A6449; C1725; J1160; J1720; J1815; J1938; J2003; J2470; J2543; J3373; J3480; J7030